=== PATIENT | female | born 1995 | race Hispanic/Latino ===

== ENCOUNTER 2024-02-05 07:03 | Day surgery (SDC) | payer MEDICAID ==
[2024-02-05] VITALS (12 sets, daily range): BP systolic 92–117; BP diastolic 53–77; PULSE 62–74; RESP 14–18; TEMP 97.3–98.1
[~2024-02-05] VITALS: Ht 152.4 cm; Wt 76.2 kg
[2024-02-05] MEDS ORDERED: CHOL500050 PO (07:58)
[2024-02-05] MEDS ORDERED: FERR-63 PO (07:58)
[2024-02-05] MEDS ORDERED: PANT20TA18 PO (07:58)
[2024-02-05] MEDS ORDERED: MESA1.2T PO (07:58)
[2024-02-05] MEDS: 0.9%NACL 1000ML 1,000 ML IV ONE (07:59)
[2024-02-05] MEDS ORDERED: proPOFol 10 MG/ML 20ML VIAL IV ONE ×2 (10:41)
== END 2024-02-05 12:20 | disposition home or self-care (01) ==
LOC: ENDO 07:03 → DAH 07:03 → ENDO 12:20
PROVIDERS: ATTEND Internal Medicine Gastroenterology
DX: D50.9 Iron deficiency anemia, unspecified (principal); K51.90 Ulcerative colitis, unspecified, without complications; K52.9 Noninfective gastroenteritis and colitis, unspecified; D12.8 Benign neoplasm of rectum; K29.50 Unspecified chronic gastritis without bleeding; Z88.1 Allergy status to other antibiotic agents; E55.9 Vitamin D deficiency, unspecified; E03.9 Hypothyroidism, unspecified; Z79.899 Other long term (current) drug therapy
CPT/HCPCS: 81025; 43239; 45380; 45385; J7030 ×2; J3490 ×2; A4615; A4215; A7002; J2704

== ENCOUNTER 2024-12-30 18:33 | Inpatient (IN) | payer MEDICAID ==
[~2024-12-30] VITALS: Ht 152.4 cm; Wt 28.3 kg
[~2024-12-30 18:33] MED LIST: CHOL500050 PO; FERR-63 PO; MESA1.2T PO; PANT20TA18 PO
--- NOTE | 2024-12-30 20:01 | ERN ---
General Chief Complaint: Fatigue Stated Complaint: FATIGUE Time Seen by MD: 19:00 Source: patient History of Present Illness Initial Comments Patient is a 29-year-old female coming in complaining of generalized body weakness. Patient was evaluated by PCP and sent in due to low hemoglobin. Patient states he has a history of ulcerative colitis and has been having these bouts of GI bleed in anemias for many years. Allergies: Coded Allergies: cefepime (Unverified Allergy, Intermediate, SWELLING, 02/11/24) HIVES, rash amoxicillin (Unverified Allergy, Unknown, RASH, ITCHING, 02/04/24) Home Meds Reported Medications Cholecalciferol (Vitamin D3) (Vitamin D3) 1,250 Mcg (08658 Unit) Capsule, 1 CAP PO QWEEK for 28 Days, #4 CAP 0 Refills 02/05/24 Pantoprazole Sodium (Pantoprazole Sodium) 20 Mg Tablet.dr, 1 TAB PO DAILY for 30 Days, #30 TAB 0 Refills 02/05/24 Mesalamine (Lialda) 1.2 Gram Tablet.dr, 1 TAB PO BID for 30 Days, #60 TAB 0 Refills 02/05/24 Ferrous Sulfate (Feosol) 325 Mg (65 Mg Iron) Tablet, 1 TAB PO TID for 30 Days, #30 TAB 0 Refills 02/05/24 Past Medical History Past Medical History: Anemia, Other Medical History Other: ulcerative colitis Past Surgical History: ROS Dictation CONSTITUTIONAL: No chills, no fever, weakness, no diaphoresis, malaise. HEAD/FACE: No signs of trauma. EENT: No eye pain, no blurred vision, no tearing, no double vision, no ear pain, no ear discharge, no nose pain, no nasal congestion, no throat pain, no throat swelling, no mouth pain. RESPIRATORY: No cough, no orthopnea, no SOB, no stridor, no wheezing. CARDIOVASCULAR: No chest pain, no edema, no palpitations, no syncope. GASTROINTESTINAL/ABDOMINAL: No abdominal pain, no constipation, no diarrhea, no nausea, no vomiting. GENITOURINARY: No abnormal discharge, no dysuria, no frequent urination, no hematuria. No complaints of pain in the genitals. MUSCULOSKELETAL: No back pain, no gout, no joint pain, no joint swelling, no muscle pain, no muscle stiffness, no neck pain. INTEGUMENTARY: No change in color, no change in hair/nails, no dryness, no l esion, no lumps, no rash. NEUROLOGICAL/PSYCH: No anxiety, not depressed, no emotional problem, no headache, no numbness, no pre-existing deficit, no history of seizures, no tremors, no weakness. HEMATOLOGIC/LYMPHATIC: Not anemic, no history of blood clots, no apparent bleeding, no bruising, glands not swollen. All Systems Negative, Except as Noted. Physical Exam Physical Exam Dictation VITAL SIGNS: Reviewed. GENERAL APPEARANCE: Alert, oriented x3, no acute distress, obese. HEAD AND FACE: Non-traumatic. EYES: PERRL, pink conjunctivas, eyelid no trauma, anterior chamber clear. EARS: Pinnas intact and no signs of trauma or erythema. Ear canals clear and no discharge. TMs no erythema. NOSE: No discharge, no bleeding. OROPHARYNX: Mouth normal, teeth no caries, tongue pink. Pharynx clear, no erythema. Tonsils no exudates, no abscesses noted. Mucous membrane moist. NECK: Supple, non-tender, no thyromegaly, no masses, no JVD, no bruits. BREAST: Deferred. CHEST: No tenderness, no crepitus, no paradoxical movement, no retractions. LUNGS: Clear, well-ventilated, symmetric, no rales, no wheezing, no rhonchi, no stridor, good breath sounds bilaterally. HEART: Regular rate, regular rhythm, no murmur, no gallops. VASCULAR: No peripheral edema. ABDOMEN: Soft, positive bowel sounds, nondistended, no guarding, nontender, no rebound, no masses no hepatomegaly, no splenomegaly, no Traore's sign, no hernias. RECTAL: Deferred. GENITAL: Deferred. NEUROLOGICAL: Normal speech, gross motor function intact, gross sensory function intact. MUSCULOSKELETAL: Neck nontender, full range of motion, back nontender, full range of motion. EXTREMITIES: Nontender, full range of motion. SKIN: Color pink, dry, no turgor, no rash, no lacerations, no abrasions, no contusions. LYMPHATICS: Deferred. Results Laboratory and Microbiology Lab and Micro Result Laboratory Tests Test 12/30/24 19:55 White Blood Count 9.7 K/uL (4.8-10.8) Red Blood Count 2.99 MIL/uL (4.00-5.50) L Hemoglobin 5.5 g/dL (12.0-16.0) *L Hematocrit 20.0 % (36-48) *L Mean Corpuscular Volume 66.9 fL (79-99) L Mean Corpuscular Hemoglobin 18.4 pg (27.0-33.0) L Mean Corpuscular Hemoglobin Concent 27.5 g/dL (32.0-36.0) L Red Cell Distribution Width 23.5 % (11.0-15.5) H Platelet Count 515 K/uL (130-400) H Mean Platelet Volume 9.6 fL (7.5-10.5) Immature Granulocyte % (Auto) 0.3 % (0-1) Neutrophils (%) (Auto) 67.1 % (40.0-77.0) Lymphocytes (%) (Auto) 16.0 % (21.0-51.0) L Monocytes (%) (Auto) 6.5 % (3.0-13.0) Eosinophils (%) (Auto) 9.7 % (0.0-8.0) H Basophils (%) (Auto) 0.4 % (0.0-5.0) Neutrophils # (Auto) 6.5 K/uL (1.8-7.7) Lymphocytes # (Auto) 1.6 K/uL (1.0-4.8) Monocytes # (Auto) 0.6 K/uL (0.1-1.0) Eosinophils # (Auto) 0.94 K/uL (0.00-0.70) H Basophils # (Auto) 0.04 K/uL (0.00-0.20) Absolute Immature Granulocyte (auto 0.03 K/uL (0-1) Nucleated Red Blood Cells 0.0 % (0.0-0.19) Sodium Level 138 mmol/L (136-145) Potassium Level 2.5 mmol/L (3.5-5.1) *L Chloride Level 101 mmol/L (101-111) Carbon Dioxide Level 28 mmol/L (21-32) Blood Urea Nitrogen 4 mg/dL (7-18) L Creatinine 0.5 mg/dL (0.5-1.0) Glomerular Filtration Rate Calc 131 mL/min (>90) Random Glucose 91 mg/dL (70-105) Total Calcium 8.0 mg/dL (8.5-10.1) L Labs Reviewed?: Yes MDM MDM: Differential diagnosis: ANEMIA, ULCERATIVE COLITIS, GI BLEED, HYPOKALEMIA, Rationale: Tests considered and ordered secondary to shared decision making include: Previous outside records reviewed: Old ER visits. Risk of complication and/or morbidity or mortality of patient management: None Medications-Per medication reconciliation Need for hospitalization: Patient does meet criteria for hospitalization. Need for emergency major/minor surgery: No There are no social concerns with this patient. Prescription drug management Prescriptions will include symptomatic care Patient's prior external medical records from other ER visits were reviewed by me as indicated. Prior testing and results from previous visits were reviewed. Prior tests were taken into account with medical decision making and resource utilization, independent historian/historians were used to obtain complete medical history. I independently interpreted the test that were performed, results were reviewed by me and considered findings on radiology if ordered. Medical management and examination interpretation discussions were had by me with other qualified healthcare professionals as indicated for the patient's care. PATIENT WILL BE ADMITTED UNDER THE CARE OF HOSPITALIST GROUP FOR ONGOING MANAGEMENT. ED Course Orders Procedure Category Date Status Time Cbc With Differential LAB 12/30/24 In Process 19:19 Prothrombin Time With LAB 12/30/24 In Process INR 19:19 Basic Metabolic Panel LAB 12/30/24 Complete 19:19 Type And Screen BBK 12/30/24 Complete 19:19 Occult Blood Stool LAB 12/30/24 Logged Single Only 19:19 Pantoprazole 40mg Inj PHA 12/30/24 Complete (Protonix 40mg Inj 19:30 Potassium Chloride PHA 12/30/24 In Process 10meq/100ml (Potassiu 21:00 Potassium Bicarb/Cit PHA 12/30/24 Logged Ac 25meq (K-Lyte Ta 21:00 Magnesium LAB 12/30/24 Logged 20:52 Current Medications Medications (Trade) Dose Ordered Sig/Donell Route PRN Reason Start Time Stop Time Status Last Admin Dose Admin Pantoprazole Sodium (PROTonix 40MG INJ) 40 mg ONCE ONCE IVP 12/30/24 19:30 12/30/24 19:31 DC 12/30/24 20:23 Potassium Bicarbonate (K-Lyte Tablet Eff 25 Meq Tablet.eff) 50 meq ONCE ONCE PO 12/30/24 21:00 12/30/24 21:01 UNV Potassium Chloride 100 ml @ 100 mls/hr ONCE ONCE IV 12/30/24 21:00 12/30/24 21:59 Vital Signs Date Time Temp Pulse Resp B/P (MAP) Pulse Ox O2 Delivery O2 Flow Rate FiO2 12/30/24 18:43 98.2 90 16 112/76 100 Room Air* 0 21 12/30/24 18:37 98.2 90 16 112/76 100 Room Air 0 Critical Care Note Comments CRITICAL CARE PROCEDURE NOTE AUTHORIZED AND PERFORMED BY: ME TOTAL CRITICAL CARE TIME: APPROXIMATELY 36 MINUTES DUE TO A HIGH PROBABILITY OF CLINICALLY SIGNIFICANT, LIFE THREATENING DETERIORATION, THE PATIENT REQUIRED MY HIGHEST LEVEL OF PREPAREDNESS TO INTERVENE EMERGENTLY AND I PERSONALLY SPENT THIS CRITICAL CARE TIME DIRECTLY AND PERSONALLY MANAGING THE PATIENT. THIS CRITICAL CARE TIME INCLUDED OBTAINING A HISTORY; EXAMINING THE PATIENT; PULSE OXIMETRY; ORDERING AND REVIEW OF STUDIES; ARRANGING URGENT TREATMENT WITH DEVELOPMENT OF A MANAGEMENT PLAN; EVALUATION OF PATIENT'S RESPONSE TO TREATMENT; FREQUENT REASSESSMENT; AND, DISCUSSIONS WITH OTHER PROVIDERS. THIS CRITICAL CARE TIME WAS PERFORMED TO ASSESS AND MANAGE THE HIGH PROBABILITY OF IMMINENT, LIFE-THREATENING DETERIORATION THAT COULD RESULT IN MULTI-ORGAN FAILURE. IT WAS EXCLUSIVE OF SEPARATELY BILLABLE PROCEDURES AND TREATING OTHER PATIENTS AND TEACHING TIME. PLEASE SEE MDM SECTION AND THE REST OF THE NOTE FOR FURTHER INFORMATION ON PATIENT ASSESSMENT AND TREATMENT. DX & DISP Disposition: Inpatient Decision to Admit Time: 21:01 Departure Impression: Primary Impression: History of ulcerative colitis Additional Impressions: Anemia, Hypokalemia Condition: Stable Referrals: TORIBIO YOUNG MD (PCP) MARNI WHEELER MD Dec 30, 2024 20:01
--- NOTE | 2024-12-30 20:02 | NUR ---
ASSUMED PT CARE
[2024-12-30 20:24] LABS: IMMATURE GRANULOCYTE ABSOLUTE 0.03 K/uL (0-1); NUCLEATED RED BLOOD CELLS 0.0 % (0.0-0.19); PLATELET COUNT (AUTO) 515 K/uL (130-400); RED BLOOD CELL COUNT(AUTO) 2.99 MIL/uL (4.00-5.50); RED CELL DISTRIBUTION WIDTH 23.5 % (11.0-15.5); WHITE BLOOD COUNT (AUTO) 9.7 K/uL (4.8-10.8)
[2024-12-30 20:35] LABS: CREATININE 0.5 mg/dL (0.5-1.0); GLOMERULAR FILTR. RATE CALC 131.0 mL/min (>90); GLUCOSE,RANDOM 91.0 mg/dL (70-105); SODIUM SERUM 138.0 mmol/L (136-145); UREA NITROGEN, BLOOD 4.0 mg/dL (7-18)
[2024-12-30 21:01] LABS: INR 1.08 (0.85-1.15)
--- NOTE | 2024-12-30 21:17 | HP ---
[facility] HISTORY AND PHYSICAL Date of Service: Dec 30, 2024 Time of Service: 21:17 Attending/supervising physicians: Dr. Michaud and Dr. Sheffield HISTORY OF PRESENT ILLNESS: Mr. Loving is a 29 year-old female with a history of ulcerative colitis, GI bleeding, and anemia for many years who [place] [facility] generalized body weakness onset a couple days. The patient was sent by PCP for evaluation and treatment of of low hemoglobin. The patient also complained of intermittent abdominal pain. Her GI physician: Dr. Philomena Tam. Chlorobutadiene Scrubber Operator: Dr. Hopkins. VS: HR 90 bpm, RR 16bpm, BP 112/76, 100% RA, 98.2 F. Labs: Chemistry: Potassium 2.5, BUN 4, Calcium 8.0, Hematology: RBC 2.99, Hgb 5.5, Hct 20.0, MCV 66.9, MCH 18.4, MCHC 27.5 RDW 23.5, PIt Count 515, Urine: UA: Negative Nitrate, negative Leukocyte est, UA: Occult Blood: +- (TRACE). No radiology results done in ED. ED administered potassium 50 mEq p.o., potassium 10 mEq IV., Protonix 40 mg IV. ED provider requested patient be admitted to the hospital with the diagnosis of ulcerative colitis, anemia, hypokalemia. I assessed the patient at bedside in ED 19. The patient's breathing was even, unlabored, appeared comfortable, in no distress. The patient was receiving PRBCs. I informed her of labs, diagnostics, and plan of care. She verbalized understanding and is in agreement with the plan. Plan and assessment are listed below. REVIEW OF SYSTEMS 12-point ROS reviewed with the patient. All pertinent positives mentioned above. Otherwise negative, noncontributory, non-pertinent. PAST MEDICAL HISTORY: As mentioned above PAST SURGICAL HISTORY: PAST SOCIAL HISTORY: Denied alcohol, tobacco, illicit drug use FAMILY HISTORY: Noncontributory Coded Allergies: cefepime (Unverified Allergy, Intermediate, SWELLING, 02/11/24) HIVES, rash amoxicillin (Unverified Allergy, Unknown, RASH, ITCHING, 02/04/24) PHYSICAL EXAM GENERAL APPEARANCE: The patient is awake, alert, and oriented, in no acute cardiopulmonary distress. NEUROLOGICAL: Cranial nerves II-XII grossly intact. Motor is 5/5 in bilateral upper and lower extremities proximal to distal. No sensory deficits. HEENT: Face is symmetric. Pupils are equal and reactive. Extraocular movements are intact. NECK: Supple. No JVD. No thyromegaly. No submental, submandibular, pre-/po stauricular, occipital or supraclavicular lymphadenopathy. CHEST: Normal chest expansion. No Telemetry. LUNGS: Absence of any rales, rhonchi or any wheezing. CARDIOVASCULAR: Regular. S1 and S2 normal. No appreciable rubs, murmurs or gallops. ABDOMEN: Soft, nontender, and nondistended. There is no rebound, voluntary guarding, or rigidity. : Deferred. No Nicole. EXTREMITIES: Non-edematous and not cyanotic. No clubbing. Good capillary refill. SKIN: No skin breakdown. Vital Sign (Last 24 Hours) 12/30/24 18:43 Temp 98.2 Pulse 90 Resp 16 B/P (MAP) 112/76 Pulse Ox 100 O2 Delivery Room Air* O2 Flow Rate 0 FiO2 21 LABS: Laboratory: Test 12/30/24 19:55 Range/Units White Blood Count 9.7 4.8-10.8 K/uL Red Blood Count 2.99 L 4.00-5.50 MIL/uL Hemoglobin 5.5 *L 12.0-16.0 g/dL Hematocrit 20.0 *L 36-48 % Mean Corpuscular Volume 66.9 L 79-99 fL Mean Corpuscular Hemoglobin 18.4 L 27.0-33.0 pg Mean Corpuscular Hemoglobin Concent 27.5 L 32.0-36.0 g/dL Red Cell Distribution Width 23.5 H 11.0-15.5 % Platelet Count 515 H 130-400 K/uL Mean Platelet Volume 9.6 7.5-10.5 fL Immature Granulocyte % (Auto) 0.3 0-1 % Neutrophils (%) (Auto) 67.1 40.0-77.0 % Lymphocytes (%) (Auto) 16.0 L 21.0-51.0 % Monocytes (%) (Auto) 6.5 3.0-13.0 % Eosinophils (%) (Auto) 9.7 H 0.0-8.0 % Basophils (%) (Auto) 0.4 0.0-5.0 % Neutrophils # (Auto) 6.5 1.8-7.7 K/uL Lymphocytes # (Auto) 1.6 1.0-4.8 K/uL Monocytes # (Auto) 0.6 0.1-1.0 K/uL Eosinophils # (Auto) 0.94 H 0.00-0.70 K/uL Basophils # (Auto) 0.04 0.00-0.20 K/uL Absolute Immature Granulocyte (auto 0.03 0-1 K/uL Nucleated Red Blood Cells 0.0 0.0-0.19 % Red Blood Cell Morphology See comments Prothrombin Time 11.4 9.6-11.6 SEC Prothromb Time International Ratio 1.08 0.85-1.15 Sodium Level 138 136-145 mmol/L Potassium Level 2.5 *L 3.5-5.1 mmol/L Chloride Level 101 101-111 mmol/L Carbon Dioxide Level 28 21-32 mmol/L Blood Urea Nitrogen 4 L 7-18 mg/dL Creatinine 0.5 0.5-1.0 mg/dL Glomerular Filtration Rate Calc 131 >90 mL/min Random Glucose 91 70-105 mg/dL Total Calcium 8.0 L 8.5-10.1 mg/dL Magnesium Level 2.00 1.80-2.40 mg/dL DIAGNOSTICS / RADIOLOGY: [ ] ASSESSMENT: Severe anemia requiring blood transfusion, POA Anorexia 2/2 acute abdominal pain, POA Severe hypokalemia, POA Thrombocytosis, POA Acute dehydration/ketonuria, POA Malnutrition/Hypoalbuminemia, POA History of ulcerative colitis History of GI bleed History of a recurrent anemia requiring blood transfusion, follows with Dr. Hopkins PLAN: Admit patient to medical floor with telemetry monitoring. Obtain CT abdomen and pelvis with contrast. Consult GI for severe anemia, rule out GI bleed, abdominal pain, history of ulcerative colitis Consult spark plug assembler for recurrent severe anemia NPO for now. Protonix 40 mg IV b.i.d.. Monitor for bleed, H&H and electrolytes q.6 hours. Transfuse1 unit of PRBCs p.r.n. hemoglobin less than seven. NS with 20 mEq KCL at 100 mL an hour. P.r.n. medications for: Pain management, fever, hypertension, nausea, vomiting, constipation Glucose checks a.c. and HS with insulin regular sliding scale coverage as needed. Monitor respirations status. Oxygen as needed to keep SpO2 equal to greater than 92. Blood pressure checks every4 hours and as needed. Reconcile home medications once available. Monitor renal and liver function. Monitor electrolytes and treat accordingly. A.m. labs. GI and DVT prophylaxis. Further plan/orders per hospitalization course. ADVANCED CARE PLANNING 1. Which of the following were discussed? Hospice Care - No Therapeutic options - Yes Advance Directives - Yes Other discussions - 2. Discussed with who? The patient 3. Voluntary nature of this service was explained to the patient? Yes 4. Amount of time spent - __ over 35 minutes 5. Reviewed by Physician? (if this service was performed by AUGUST) Yes ATTESTATION BY PHYSICIAN I have seen and examined the patient. I reviewed the documentation, medical decision making, and treatment plan as noted by the AUGUST above. I agree with the findings and plan of care. MARIE HERNANDEZ PHOTOGRAPHER MODEL Dec 30, 2024 21:17
[2024-12-30 22:25] LABS: APPEARANCE,URINE CLEAR (CLEAR); GLUCOSE, URINE (UA) NEGATIVE (NEGATIVE); LEUKOCYTE ESTERASE ,URINE NEGATIVE Leu/uL (NEGATIVE); NITRATE,URINE NEGATIVE (NEGATIVE); OCCULT BLOOD,URINE +- (TRACE) (NEGATIVE)
[2024-12-30 22:26] LABS: ADD UA MICROSCOPIC YES
[2024-12-30 22:27] LABS: SQUAMOUS EPITHELIAL CELL,UR RARE /HPF (0-2)
[2024-12-30] MEDS ORDERED: GLUCAGON 1MG KIT 1 MG ML IM PRN (23:00)
[2024-12-30] MEDS ORDERED: DEXTROSE 50%-WATER 50 ML DISP.SYRIN IV PRN (23:00)
[2024-12-30] MEDS: 0.9%NACL 1000ML 1,000 ML IV SCH (23:08)
[2024-12-30 23:37] LABS: ASPARTATE AMINOTRANSFERASE 12.0 U/L (10-37); CREATININE 0.4 mg/dL (0.5-1.0); GLOMERULAR FILTR. RATE CALC 138.0 mL/min (>90); GLUCOSE,RANDOM 101.0 mg/dL (70-105); SODIUM SERUM 137.0 mmol/L (136-145); TOTAL PROTEIN, SERUM 6.8 g/dL (6.0-8.3); UREA NITROGEN, BLOOD 3.0 mg/dL (7-18)
[2024-12-31] VITALS (10 sets, daily range): BP systolic 99–123; BP diastolic 57–78; PULSE 63–90; RESP 16–20; TEMP 98–98.3; O2SAT 97–100
--- NOTE | 2024-12-31 00:28 | NUR ---
PT MOVED TO ROOM 19. HANDED OVER TO TARAH GARCÍA
[2024-12-31] MEDS: PoTASSium chloRIDE 20MEQ ER 20 MEQ ERTAB PO ONE (01:41)
--- NOTE | 2024-12-31 02:24 | NUR ---
FIRST BAG OF BLOOD TRANSFUSIONED, PT VITALS WITHIN NORMAL LIMITS, PT TOLERATED TREATMENT WELL
[2024-12-31 05:01] LABS: NUCLEATED RED BLOOD CELLS 0.0 % (0.0-0.19)
[2024-12-31 05:20] LABS: SARS-CoV-2, RNA, NAAT NEGATIVE SARS CoV-2 (NEGATIVE)
[2024-12-31 05:22] LABS: INFLUENZA TYPE A Negative For Type A (NEGATIVE); INFLUENZA TYPE B Negative For Type B (NEGATIVE)
[2024-12-31 05:23] LABS: CREATININE 0.4 mg/dL (0.5-1.0); GLOMERULAR FILTR. RATE CALC 138.0 mL/min (>90); GLUCOSE,RANDOM 94.0 mg/dL (70-105); PHOSPHORUS 3.5 mg/dL (2.5-4.9); SODIUM SERUM 137.0 mmol/L (136-145); UREA NITROGEN, BLOOD 5.0 mg/dL (7-18)
[2024-12-31] MEDS ORDERED: IOHEXOL 350 MG/ML 100ML INFUS..BTL IV ONE (05:37)
[2024-12-31] MEDS ORDERED: DICY20TA3 PO (06:01)
[2024-12-31] MEDS ORDERED: ADAL40PE5 SQ (06:01)
[2024-12-31] MEDS: NS-20 MEQ KCL 1000ML 1,000 ML IV SCH (06:18)
--- NOTE | 2024-12-31 06:45 | HMCIMG ---
EXAM: CT Abdomen and Pelvis with IV contrast CLINICAL HISTORY: Abdominal pain. Severe anemia. History of ulcerative colitis. TECHNIQUE: Thin collimated axial CT images of the abdomen and pelvis were obtained, with sagittal and coronal reformatted images also submitted. A CT scan is done according to ALARA (As Low As Reasonably Achievable). CONTRAST: Contrast information is not available. COMPARISON: Prior CT abdomen dated 11 February 2024 FINDINGS: Unremarkable visualized lung parenchyma. No focal abnormality within the liver, gallbladder, pancreas, spleen, adrenals, or kidneys. Subtle inflammatory wall thickening in the distal transverse, descending colon, and diffuse inflammatory wall thickening in the region of the sigmoid colon and in the rectum with submucosal edema and adjacent fat stranding. No evidence of diverticulosis or diverticulitis. No features of bowel obstruction or ileus. The appendix is normal. There is no abnormality within the urinary bladder. A fat attenuation 2.4 x 2.4 cm lesion in the left ovary, probably a left ovarian dermoid, and another 3.1 x 2.8 cm cyst follicular cyst, in the left ovary. The uterus and right ovary appear unremarkable. Abdominal and pelvic vessels are patent. No lymphadenopathy. No free fluid. There is no acute osseous abnormality. IMPRESSIONS: Subtle inflammatory wall thickening in the distal transverse, descending colon, and diffuse inflammatory wall thickening in the region of the sigmoid colon and in the rectum with submucosal edema and adjacent fat stranding. Consistent with the history of ulcerative colitis. No evidence of diverticulosis or diverticulitis. Normal contrast opacification of the abdominal aorta and visceral arteries. No significant narrowing or occlusion. A fat attenuation 2.4 x 2.4 cm lesion in the left ovary, probably a left ovarian dermoid, and another 3.1 x 2.8 cm cyst follicular cyst, in the left ovary. Compared to the prior study, redemonstrated inflammatory wall thickening in the descending, sigmoid colon, and rectum, more pronounced in the current scan. Stable left ovarian dermoid, interval development of 2.8 x 3.1 cm follicular cyst in the left ovary. /[place]
--- NOTE | 2024-12-31 08:02 | CONS ---
LOCATION: 411. REFERRING PHYSICIAN: Brooklynn Ortiz. REASON FOR CONSULTATION: Iron deficiency anemia and GI bleeding. HISTORY OF PRESENT ILLNESS: This is a 29-year-old woman, well known to me with ulcerative colitis and iron deficiency anemia, I see in conjunction with Dr. Philomena Kang. She called my office late yesterday with hemoglobin of 5. We talked it over and decided it would be better if she come to the hospital for a possible transfusion. She is admitted by the hospitalist who gave her a unit of blood overnight. She looks fine this morning. She has had some bleeding, but just took her Enbrel shot yesterday, which is treatment of her ulcerative colitis. PAST MEDICAL HISTORY: Ulcerative colitis as noted above, iron deficiency anemia. PAST SURGICAL HISTORY: Multiple endoscopies, , previous transfusions. MEDICATIONS: See intake sheet. ALLERGIES: CEFEPIME AND AMOXICILLIN CAUSED REACTIONS. FAMILY HISTORY: Negative for inflammatory bowel disease. SOCIAL HISTORY: She lives with her family. Does not smoke or drink. She is actually very active. REVIEW OF SYSTEMS: HEENT: Negative. CARDIOVASCULAR: Negative for chest pain, palpitations, PND. PULMONARY: Negative for cough. GASTROINTESTINAL: As above, intermittent bleeding. GENITOURINARY: Negative for hematuria or dysuria. PHYSICAL EXAMINATION: VITAL SIGNS: Blood pressure 99/57, pulse 68, respirations 20. HEENT: Benign. CHEST: Clear. ABDOMEN: Soft. EXTREMITIES: Show no edema. NEUROLOGICAL: Alert and oriented. IMPRESSION: GI bleeding from ulcerative colitis, ulcerative colitis, iron deficiency anemia, other problems as listed. PLAN: Repeat her CBC. If she is going to stay another day, I would give her a shot of Venofer or equivalent, whatever the hospital has in terms of iron replacement. Protonix IV prophylactically. I suspect she does not really need to be rescoped since we already know her diagnosis, but certainly, I would consult GI, Dr. Kang. If the bleeding subsides, I think she can go home and follow up in the clinic tomorrow. She looks perfectly stable. Thank you for the consult. TID: [id number] RECEIPT: [id number]
[2024-12-31] MEDS ORDERED: DICYCLOMINE HCL 20 MG TAB PO PRN (09:00)
--- NOTE | 2024-12-31 09:36 | CONS ---
GASTROENTEROLOGY CONSULTATION NOTE Date of Consultation: Dec 31, 2024 Time of Consultation: 09:25 History of Present Illness: [This is a 29-year-old female patient known to our service with past medical history for ulcerative colitis, iron-deficiency anemia, gastritis, hypothyroidism, vitamin-D deficiency, who presented to the emergency room with complaints of generalized body weakness. Patient had been evaluated by her PCP and was told she had low hemoglobin. Patient was last seen at our clinic on 10/28/2024 where she had been prescribed azathioprine tablets, Humira pen kit 40mg/0.4mL to be given SQ every other week, and dicyclomine 20 mg for abdominal pain. Patient has been lost to follow up. Initial WBC of 9.7, hemoglobin 5.5, MCV 66.9, platelets 515. Chemistries significant for potassium of 3.4, BUN five, creatinine 0.4, calcium 8.2. LFTs are normal. Albumin 3.0. TSH 0.89. UA positive for blood 20 of ketones. Patient has received 1 unit of leukocytes RBCs. Repeat CBC pending. CT of abdomen w/contrast findings: Subtle inflammatory wall thickening in the distal transverse, descending colon, and diffuse inflammatory wall thickening in the region of the sigmoid colon and in the rectum with submucosal edema and adjacent fat stranding. Consistent with the history of ulcerative colitis. No evidence of diverticulosis or diverticulitis. Normal contrast opacification of the abdominal aorta and visceral arteries. No significant narrowing or occlusion. A fat attenuation 2.4 x 2.4 cm lesion in the left ovary, probably a left ovarian dermoid, and another 3.1 x 2.8 cm cyst follicular cyst, in the left ovary. On exam, patient is sitting in bed a,a,&o x3 in no acute distress. Her respirations are even and unlabored with bbs clear. Abdomen is soft, nondistended and nontender. Active BS present. She reports she had Humira injection on 12/24/24. Oriented to poc and recommendations for colonoscopy tomorrow followed by Iv methylprednisone infusion x 3 days then po. Patient verbalized understanding and agreement. ] Review of Systems: CONSTITUTIONAL: No malaise or change in sensation of wellbeing. ENMT: No rhinorrhea, otorrhea, sinus pain, ear ache. CARDIOVASCULAR: No angina, palpitations, orthopnea or paroxysmal dyspnea. RESPIRATORY: No SOB. GASTROINTESTINAL: No abdominal pain, nausea, vomiting, diarrhea, hematemesis, melena or change in the patient's habitual bowel movements consistency/number. GENITOURINARY: No dysuria, hematuria or change in bladder continence. MUSCULOSKELETAL: No new muscle pain or decrease in muscular strength. No new joint swelling, redness or tenderness. SKIN: No new rash. Past Medical History: Past Medical History: Ulcerative Colitis, Iron deficiency anemia, Vitamin D deficiency, Hypothyroidism, Gastritis, Past Surgical History: 02/03/23, Tonsillectomy, Adenoidectomy Coded Allergies: cefepime (Unverified Allergy, Intermediate, SWELLING, 02/11/24) HIVES, rash amoxicillin (Unverified Allergy, Unknown, RASH, ITCHING, 02/04/24) Physical Exam GEN: Awake, alert, oriented in person, time and place, and in no acute distress. HEENT: No rhinorrhea. Oral pharyngeal mucosa is pink, moist and within normal limits. CHEST: Inspection, and palpation of the chest were unremarkable. Lung auscultation revealed normal breath sounds bilaterally. CARDIAC: PMI is within normal limits. Heart sounds are regular. ABD: Soft, non-tender and not distended. No peritoneal signs on palpation. No organomegaly. Normal bowel sounds. Last bm 12/31/24. EXT: No cyanosis or clubbing. No edema. SKIN: Intact. No rashes. JOINTS: No evidence of synovitis or acute arthritis. NEURO: Alert and oriented to name, place and person. Cranial nerve examination is unremarkable. No focal motor deficits. Normal speech. Steady gait noted. Strength is normal. Vital Sign (Last 24 Hours) 12/31/24 12/31/24 05:50 08:00 Temp 98.1 Pulse 63 Resp 18 B/P (MAP) 101/59 Pulse Ox 100 O2 Delivery Room Air O2 Flow Rate 0 FiO2 21 Laboratory: [ ] Laboratory: Test 12/31/24 06:11 12/31/24 05:00 12/31/24 04:55 12/31/24 04:45 Range/Units Whole Blood Glucose 92 70-110 MG/DL Influenza Type A Antigen Negative For Type A NEGATIVE Influenza Type B Antigen Negative For Type B NEGATIVE SARS-CoV-2, RNA, NAAT NEGATIVE SARS CoV-2 NEGATIVE White Blood Count 4.8-10.8 K/uL Red Blood Count 4.00-5.50 MIL/uL Hemoglobin 12.0-16.0 g/dL Hematocrit 36-48 % Mean Corpuscular Volume 79-99 fL Mean Corpuscular Hemoglobin 27.0-33.0 pg Mean Corpuscular Hemoglobin Concent 32.0-36.0 g/dL Red Cell Distribution Width 11.0-15.5 % Platelet Count 130-400 K/uL Mean Platelet Volume 7.5-10.5 fL Nucleated Red Blood Cells 0.0 0.0-0.19 % Sodium Level 137 136-145 mmol/L Potassium Level 3.4 L 3.5-5.1 mmol/L Chloride Level 101 101-111 mmol/L Carbon Dioxide Level 28 21-32 mmol/L Blood Urea Nitrogen 5 L 7-18 mg/dL Creatinine 0.4 L 0.5-1.0 mg/dL Glomerular Filtration Rate Calc 138 >90 mL/min Random Glucose 94 70-105 mg/dL Hemoglobin A1c 4.6 4.0-6.0 % Estimated Average Glucose (eAG) 85 70-126 mg/dL Total Calcium 8.2 L 8.5-10.1 mg/dL Phosphorus Level 3.5 2.5-4.9 mg/dL Magnesium Level 2.10 1.80-2.40 mg/dL Thyroid Stimulating Hormone (TSH) 0.89 0.36-3.74 uIU/mL Urine HCG, Qualitative NEGATIVE NEGATIVE Test 12/30/24 23:10 12/30/24 20:55 12/30/24 19:55 Range/Units Total Bilirubin 0.3 0.2-1.0 mg/dL Aspartate Amino Transf (AST/SGOT) 12 10-37 U/L Alanine Aminotransferase (ALT/SGPT) 15 12-78 U/L Alkaline Phosphatase 66 50-136 U/L Total Protein 6.8 6.0-8.3 g/dL Albumin 3.0 L 3.5-5.0 g/dL Urine Color COLORLESS YELLOW Urine Appearance CLEAR CLEAR Urine pH 7.0 5.0-8.0 Urine Specific [place] 1.005 1.001-1.031 Urine Protein NEGATIVE NEGATIVE mg/dL Urine Glucose (UA) NEGATIVE NEGATIVE mg/dL Urine Ketones 20 H NEGATIVE mg/dL Urine Occult Blood +- (TRACE) H NEGATIVE Urine Nitrate NEGATIVE NEGATIVE Urine Bilirubin NEGATIVE NEGATIVE mg/dL Urine Urobilinogen 0.2 0.2-1.0 mg/dL Urine Leukocyte Esterase NEGATIVE NEGATIVE [place]/uL Urine RBC 0-1 0-1 /HPF Urine WBC 2-5 H 0-1 /HPF Urine Squamous Epithelial Cells RARE 0-2 /HPF Urine Bacteria RARE None Seen /HPF Immature Granulocyte % (Auto) 0.3 0-1 % Neutrophils (%) (Auto) 67.1 40.0-77.0 % Lymphocytes (%) (Auto) 16.0 L 21.0-51.0 % Monocytes (%) (Auto) 6.5 3.0-13.0 % Eosinophils (%) (Auto) 9.7 H 0.0-8.0 % Basophils (%) (Auto) 0.4 0.0-5.0 % Neutrophils # (Auto) 6.5 1.8-7.7 K/uL Lymphocytes # (Auto) 1.6 1.0-4.8 K/uL Monocytes # (Auto) 0.6 0.1-1.0 K/uL Eosinophils # (Auto) 0.94 H 0.00-0.70 K/uL Basophils # (Auto) 0.04 0.00-0.20 K/uL Absolute Immature Granulocyte (auto 0.03 0-1 K/uL Red Blood Cell Morphology See comments Prothrombin Time 11.4 9.6-11.6 SEC Prothromb Time International Ratio 1.08 0.85-1.15 Current Medications Medications (Trade) Dose Ordered Sig/Donell Route PRN Reason Start Time Stop Time Status Last Admin Dose Admin Acetaminophen (TYLenol 325MG TAB) 650 mg Q6H PRN PO FEVER/MILD PAIN LEVEL 1-3 12/30/24 23:00 01/29/25 22:59 Acetaminophen (TYLenol 650MG SUPPOSITORY) 650 mg Q6H PRN RC FEVER / MILD PAIN 1-3 IF NPO 12/30/24 23:00 01/29/25 22:59 Dextrose (D50w) 50 ml AD PRN IV HYPOGLYCEMIA PROTOCOL 12/30/24 23:00 01/29/25 22:59 Dicyclomine HCl (Bentyl 20mg Tab) 20 mg BID PRN PO GI UPSET/UPSET STOMACH 12/31/24 09:00 01/30/25 08:59 Glucagon (Glucagon 1mg Kit) 1 mg AD PRN IM HYPOGLYCEMIA PROTOCOL 12/30/24 23:00 01/29/25 22:59 Insulin Human Regular (humuLIN R 100 UNIT/ML 3ML) INSULIN SLIDING SCAL... ACHS SQ 12/31/24 07:30 01/30/25 07:29 Labetalol HCl (TRANdate 20MG SYG) 10 mg Q2H PRN IV SBP GREATER THAN 160 12/30/24 23:00 01/29/25 22:59 Magnesium Sulfate 50 ml @ 0 mls/hr PROTOCOL PRN IV MAGNESIUM PROTOCOL 12/30/24 23:00 01/29/25 22:59 Ondansetron HCl (zoFRAN 4MG INJ) 4 mg Q6H PRN IVP NAUSEA/VOMITING 12/30/24 23:00 01/29/25 22:59 Pantoprazole Sodium (PROTonix 40MG INJ) 40 mg BID IVP 12/31/24 09:00 01/30/25 08:59 Potassium Chloride/Sodium Chloride 1,000 ml @ 100 mls/hr Q10H IV 12/31/24 05:00 01/30/25 04:59 12/31/24 06:18 100 MLS/HR Potassium Chloride 100 ml @ 100 mls/hr AD PRN IV POTASSIUM PROTOCOL 12/30/24 23:00 01/29/25 22:59 Potassium Chloride (K-Dur/Klor-Con 20meq) 20 meq AD PRN PO POTASSIUM PROTOCOL 12/30/24 23:00 01/29/25 22:59 Potassium Chloride (KCl 10% Elixir 20meq/15ml) 20 meq AD PRN PO POTASSIUM PROTOCOL 12/30/24 23:00 01/29/25 22:59 Sodium Chloride 1,000 ml @ 100 mls/hr Q10H IV 12/30/24 23:00 01/29/25 22:59 12/30/24 23:08 100 MLS/HR Temazepam (restORIL 15 MG CAP) 15 mg HS PRN PO INSOMNIA/SLEEP 12/30/24 23:00 01/29/25 22:59 Diagnostics / Radiology: [COPY/PASTE HERE IF NO REPORTS PLEASE DELETE SECTION] Assessment: [Concern for GI bleed Anemia Ulcerative Colitis Hypothyroidism ] Plan: Case discussed with Dr. Naidu [Clear fluids today NPO after midnight Recommend trending HGB every 6 hours and transfuse as needed to goal HGB > 7. Plan for Colonoscopy in am--All information given to patient. Her questions were answered and she agreed to proceed with exam. Stool studies ordered Mesalamine 1600mg po tid Please call with questions, concerns, and change in clinical status. Thank you for allowing us to be part of this patient's care ] ERIS MARTIN NP Dec 31, 2024 09:36
[2024-12-31 09:40] LABS: CREATININE 0.5 mg/dL (0.5-1.0); GLOMERULAR FILTR. RATE CALC 131.0 mL/min (>90); GLUCOSE,RANDOM 86.0 mg/dL (70-105); SODIUM SERUM 138.0 mmol/L (136-145); UREA NITROGEN, BLOOD 3.0 mg/dL (7-18)
[2024-12-31 09:50] LABS: NUCLEATED RED BLOOD CELLS 0.0 % (0.0-0.19); PLATELET COUNT (AUTO) 469.0 K/uL (130-400); RED BLOOD CELL COUNT(AUTO) 3.55 MIL/uL (4.00-5.50); RED CELL DISTRIBUTION WIDTH 23.8 % (11.0-15.5); WHITE BLOOD COUNT (AUTO) 11.4 K/uL (4.8-10.8)
[2024-12-31 10:12] LABS: % IRON SATURATION 4.2 % (22-44); IRON, SERUM 11.0 mcg/dL (50-170)
--- NOTE | 2024-12-31 10:15 | NUR ---
Report received from Charge NursePritesh. Assumed care of patient.
--- NOTE | 2024-12-31 11:13 | NUR ---
DCP:HOME Pt currently lives at home with her common law and 2 kids. Pt receives $534 in SNAP benefits and states that she receives housing assistance to pay for her apartment but was unaware of the amount of the assistance. Pt does not have home health or provider services. Pt is able to complete ADLs independently. PCP is Philomena Orta and uses [facility] for any RX needs. At DC pt will want to go home and family can assist with transportation. Addendum: 12/31/24 at 1115 by PINA ARROYO SS Amended: Links added.
--- NOTE | 2024-12-31 13:59 | PN ---
[facility] PROGRESS NOTE Date of Service: Dec 31, 2024 Time of Service: 13:58 SUBJECTIVE: Mr. Loving is a 29 year-old female with a history of ulcerative colitis, GI bleeding, and anemia for many years who presented with [facility] for evaluation of generalized body weakness onset a couple days. The patient was sent by PCP for evaluation and treatment of of low hemoglobin. The patient also complained of intermittent abdominal pain. Her GI physician: Dr. Philomena Tam. Director Construction Services: Dr. Hopkins. VS: HR 90 bpm, RR 16bpm, BP 112/76, 100% RA, 98.2 F. Labs: Chemistry: Potassium 2.5, BUN 4, Calcium 8.0, Hematology: RBC 2.99, Hgb 5.5, Hct 20.0, MCV 66.9, MCH 18.4, MCHC 27.5 RDW 23.5, PIt Count 515, Urine: UA: Negative Nitrate, negative Leukocyte est, UA: Occult Blood: +- (TRACE). No radiology results done in ED. ED administered potassium 50 mEq p.o., potassium 10 mEq IV., Protonix 40 mg IV. ED provider requested patient be admitted to the hospital with the diagnosis of ulcerative colitis, anemia, hypokalemia. I assessed the patient at bedside in ED 19. The patient's breathing was even, unlabored, appeared comfortable, in no distress. The patient was receiving PRBCs. I informed her of labs, diagnostics, and plan of care. She verbalized understanding and is in agreement with the plan. Plan and assessment are listed below. 12/31/24: Patient seen at bedside in room 411. Case discussed with RN, no overnight events. She received one PRBCs transfusion yesterday night, patient says she is feeling better now. Her hemoglobin increased from 5.5t o 7.5, RBC from 2.99 to 3.55, her potassium has improved from 2.5 to 3.[address] abdomen/pelvis shows subtle inflammatory wall thickening in distal transverse, descending colon and diffuse inflammatory wall thickening in the region of the sigmoid colon and in the rectum with submucosal edema and adjacent fat stranding consistent with ulcerative colitis. No evidence of diverticulosis or diverticulitis. Left ovary shows dermoid, follicular cyst on CT. She is on clear diet now, NPO from midnight for colonoscopy in a.m. tomorrow as per GI recommendations. Methylprednisolone 60 mg IV, Mesalamine 1600 mg p.o. t.i.d. for ulcerative colitis. Trend hemoglobin every 6 hours and transfuse as needed to goal hemoglobin >7. REVIEW OF SYSTEMS 12-point ROS reviewed with the patient. All pertinent positives mentioned above. Otherwise negative, noncontributory, non-pertinent. PHYSICAL EXAM GENERAL APPEARANCE: The patient is awake, alert, and oriented, in no acute cardiopulmonary distress. HEENT: Face is symmetric. Pupils are equal and reactive. Extraocular movements are intact. NECK: Supple. No JVD. No thyromegaly. No submental, submandibular, pre-/postauricular, occipital or supraclavicular lymphadenopathy. CHEST: Normal chest expansion. No Telemetry. LUNGS: Absence of any rales, rhonchi or any wheezing. CARDIOVASCULAR: Regular. S1 and S2 normal. No appreciable rubs, murmurs or gallops. ABDOMEN: Soft, nontender, and nondistended. There is no rebound, voluntary guarding, or rigidity. : Deferred. No Nicole. EXTREMITIES: Non-edematous and not cyanotic. No clubbing. Good capillary refill. SKIN: No skin breakdown. Vital Signs (last 8hr) Date Time Temp Pulse Resp B/P (MAP) Pulse Ox O2 Delivery O2 Flow Rate FiO2 12/31/24 12:00 98.2 75 16 100/59 99 Room Air 21 12/31/24 08:00 98.1 63 18 101/59 100 Room Air LABS: Laboratory: Test 12/31/24 11:02 12/31/24 09:13 12/31/24 05:00 12/31/24 04:55 Range/Units Whole Blood Glucose 81 70-110 MG/DL White Blood Count 11.4 H 4.8-10.8 K/uL Red Blood Count 3.55 L 4.00-5.50 MIL/uL Hemoglobin 7.5 #L 12.0-16.0 g/dL Hematocrit 25.1 #L 36-48 % Mean Corpuscular Volume 70.7 L 79-99 fL Mean Corpuscular Hemoglobin 21.1 L 27.0-33.0 pg Mean Corpuscular Hemoglobin Concent 29.9 L 32.0-36.0 g/dL Red Cell Distribution Width 23.8 H 11.0-15.5 % Platelet Count 469 H 130-400 K/uL Mean Platelet Volume 9.6 7.5-10.5 fL Nucleated Red Blood Cells 0.0 0.0-0.19 % Reticulocyte Count (auto) 1.37064 0.42-2.23 % Immature Reticulocyte Fraction 5.70 H 0.18-0.48 % Sodium Level 138 136-145 mmol/L Potassium Level 3.3 L 3.5-5.1 mmol/L Chloride Level 104 101-111 mmol/L Carbon Dioxide Level 28 21-32 mmol/L Blood Urea Nitrogen 3 L 7-18 mg/dL Creatinine 0.5 0.5-1.0 mg/dL Glomerular Filtration Rate Calc 131 >90 mL/min Random Glucose 86 70-105 mg/dL Whole Blood Ketones Quantitative 0.4 0.0-0.6 mmol/L Total Calcium 7.7 L 8.5-10.1 mg/dL Iron Level 11 L 50-170 mcg/dL Total Iron Binding Capacity 258 250-450 mcg/dL Percent Iron Saturation 4.2 L 22-44 % Ferritin 21 15-150 ng/mL C-Reactive Protein, Quantitative 1.50 0.5-3.0 mg/L Vitamin B12 Level 1562 H 193-986 pg/mL Folic Acid (LAB) 17.10 2-20 ng/mL Influenza Type A Antigen Negative For Type A NEGATIVE Influenza Type B Antigen Negative For Type B NEGATIVE SARS-CoV-2, RNA, NAAT NEGATIVE SARS CoV-2 NEGATIVE Hemoglobin A1c 4.6 4.0-6.0 % Estimated Average Glucose (eAG) 85 70-126 mg/dL Phosphorus Level 3.5 2.5-4.9 mg/dL Magnesium Level 2.10 1.80-2.40 mg/dL Thyroid Stimulating Hormone (TSH) 0.89 0.36-3.74 uIU/mL Test 12/31/24 04:45 12/30/24 23:10 12/30/24 20:55 12/30/24 19:55 Range/Units Urine HCG, Qualitative NEGATIVE NEGATIVE Total Bilirubin 0.3 0.2-1.0 mg/dL Aspartate Amino Transf (AST/SGOT) 12 10-37 U/L Alanine Aminotransferase (ALT/SGPT) 15 12-78 U/L Alkaline Phosphatase 66 50-136 U/L Total Protein 6.8 6.0-8.3 g/dL Albumin 3.0 L 3.5-5.0 g/dL Urine Color COLORLESS YELLOW Urine Appearance CLEAR CLEAR Urine pH 7.0 5.0-8.0 Urine Specific [place] 1.005 1.001-1.031 Urine Protein NEGATIVE NEGATIVE mg/dL Urine Glucose (UA) NEGATIVE NEGATIVE mg/dL Urine Ketones 20 H NEGATIVE mg/dL Urine Occult Blood +- (TRACE) H NEGATIVE Urine Nitrate NEGATIVE NEGATIVE Urine Bilirubin NEGATIVE NEGATIVE mg/dL Urine Urobilinogen 0.2 0.2-1.0 mg/dL Urine Leukocyte Esterase NEGATIVE NEGATIVE [place]/uL Urine RBC 0-1 0-1 /HPF Urine WBC 2-5 H 0-1 /HPF Urine Squamous Epithelial Cells RARE 0-2 /HPF Urine Bacteria RARE None Seen /HPF Immature Granulocyte % (Auto) 0.3 0-1 % Neutrophils (%) (Auto) 67.1 40.0-77.0 % Lymphocytes (%) (Auto) 16.0 L 21.0-51.0 % Monocytes (%) (Auto) 6.5 3.0-13.0 % Eosinophils (%) (Auto) 9.7 H 0.0-8.0 % Basophils (%) (Auto) 0.4 0.0-5.0 % Neutrophils # (Auto) 6.5 1.8-7.7 K/uL Lymphocytes # (Auto) 1.6 1.0-4.8 K/uL Monocytes # (Auto) 0.6 0.1-1.0 K/uL Eosinophils # (Auto) 0.94 H 0.00-0.70 K/uL Basophils # (Auto) 0.04 0.00-0.20 K/uL Absolute Immature Granulocyte (auto 0.03 0-1 K/uL Red Blood Cell Morphology See comments Prothrombin Time 11.4 9.6-11.6 SEC Prothromb Time International Ratio 1.08 0.85-1.15 Current Medications Medications (Trade) Dose Ordered Sig/Donell Route PRN Reason Start Time Stop Time Status Last Admin Dose Admin Acetaminophen (TYLenol 325MG TAB) 650 mg Q6H PRN PO FEVER/MILD PAIN LEVEL 1-3 12/30/24 23:00 01/29/25 22:59 Acetaminophen (TYLenol 650MG SUPPOSITORY) 650 mg Q6H PRN RC FEVER / MILD PAIN 1-3 IF NPO 12/30/24 23:00 01/29/25 22:59 Dextrose (D50w) 50 ml AD PRN IV HYPOGLYCEMIA PROTOCOL 12/30/24 23:00 01/29/25 22:59 Dicyclomine HCl (Bentyl 20mg Tab) 20 mg BID PRN PO GI UPSET/UPSET STOMACH 12/31/24 09:00 01/30/25 08:59 Glucagon (Glucagon 1mg Kit) 1 mg AD PRN IM HYPOGLYCEMIA PROTOCOL 12/30/24 23:00 01/29/25 22:59 Insulin Human Regular (humuLIN R 100 UNIT/ML 3ML) INSULIN SLIDING SCAL... ACHS SQ 12/31/24 07:30 01/30/25 07:29 Labetalol HCl (TRANdate 20MG SYG) 10 mg Q2H PRN IV SBP GREATER THAN 160 12/30/24 23:00 01/29/25 22:59 Magnesium Sulfate 50 ml @ 0 mls/hr PROTOCOL PRN IV MAGNESIUM PROTOCOL 12/30/24 23:00 01/29/25 22:59 Mesalamine (Asacol Hd) 1,600 mg TID PO 12/31/24 14:00 01/30/25 13:59 Methylprednisolone Sodium Succinate (Solu-medROL 40MG) 60 mg DAILY13 IVP 01/01/25 13:00 01/03/25 14:00 Ondansetron HCl (zoFRAN 4MG INJ) 4 mg Q6H PRN IVP NAUSEA/VOMITING 12/30/24 23:00 01/29/25 22:59 Pantoprazole Sodium (PROTonix 40MG INJ) 40 mg BID IVP 12/31/24 09:00 01/30/25 08:59 Potassium Chloride/Sodium Chloride 1,000 ml @ 100 mls/hr Q10H IV 12/31/24 05:00 01/30/25 04:59 12/31/24 06:18 100 MLS/HR Potassium Chloride 100 ml @ 100 mls/hr AD PRN IV POTASSIUM PROTOCOL 12/30/24 23:00 01/29/25 22:59 Potassium Chloride (K-Dur/Klor-Con 20meq) 20 meq AD PRN PO POTASSIUM PROTOCOL 12/30/24 23:00 01/29/25 22:59 Potassium Chloride (KCl 10% Elixir 20meq/15ml) 20 meq AD PRN PO POTASSIUM PROTOCOL 12/30/24 23:00 01/29/25 22:59 Sodium Chloride 1,000 ml @ 100 mls/hr Q10H IV 12/30/24 23:00 01/29/25 22:59 12/30/24 23:08 100 MLS/HR Temazepam (restORIL 15 MG CAP) 15 mg HS PRN PO INSOMNIA/SLEEP 12/30/24 23:00 01/29/25 22:59 DIAGNOSTICS / RADIOLOGY: [ PATIENT: TIFF LOVING MR#: [id number] : 1995 SEX: F AGE: 29 LOCATION: [facility] ORDER 9 STATUS: ADM IN REPORT#: [id number] SERVICE 7 REASON: abd pain, severe anemia, hx ulcerative colitis ORDERING PHYSICIAN: MARIE HERNANDEZ BEEF SKINNER PROCEDURE: ABD PEL W - CT ABDOMEN/PELVIS W/CONTRAST EXAM: CT Abdomen and Pelvis with IV contrast CLINICAL HISTORY: Abdominal pain. Severe anemia. History of ulcerative colitis. TECHNIQUE: Thin collimated axial CT images of the abdomen and pelvis were obtained, with sagittal and coronal reformatted images also submitted. A CT scan is done according to ALARA (As Low As Reasonably Achievable). CONTRAST: Contrast information is not available. COMPARISON: Prior CT abdomen dated 11 February 2024 FINDINGS: Unremarkable visualized lung parenchyma. No focal abnormality within the liver, gallbladder, pancreas, spleen, adrenals, or kidneys. Subtle inflammatory wall thickening in the distal transverse, descending colon, and diffuse inflammatory wall thickening in the region of the sigmoid colon and in the rectum with submucosal edema and adjacent fat stranding. No evidence of diverticulosis or diverticulitis. No features of bowel obstruction or ileus. The appendix is normal. There is no abnormality within the urinary bladder. A fat attenuation 2.4 x 2.4 cm lesion in the left ovary, probably a left ovarian dermoid, and another 3.1 x 2.8 cm cyst follicular cyst, in the left ovary. The uterus and right ovary appear unremarkable. Abdominal and pelvic vessels are patent. No lymphadenopathy. No free fluid. There is no acute osseous abnormality. IMPRESSIONS: Subtle inflammatory wall thickening in the distal transverse, descending colon, and diffuse inflammatory wall thickening in the region of the sigmoid colon and in the rectum with submucosal edema and adjacent fat stranding. Consistent with the history of ulcerative colitis. No evidence of diverticulosis or diverticulitis. Normal contrast opacification of the abdominal aorta and visceral arteries. No significant narrowing or occlusion. A fat attenuation 2.4 x 2.4 cm lesion in the left ovary, probably a left ovarian dermoid, and another 3.1 x 2.8 cm cyst follicular cyst, in the left ovary. Compared to the prior study, redemonstrated inflammatory wall thickening in the descending, sigmoid colon, and rectum, more pronounced in the current scan. Stable left ovarian dermoid, interval development of 2.8 x 3.1 cm follicular cyst in the left ovary. /[place] DICTATED BY: DANY ACOSTA Jr., MD DATE: 12/31/24743 ELECTRONICALLY SIGNED BY: DANY ACOSTA Jr., MD DATE: 12/31/24743 ] ASSESSMENT: Severe iron deficiency anemia requiring blood transfusion, POA ulcerative colitis Anorexia 2/2 acute abdominal pain, POA Severe hypokalemia, POA Thrombocytosis, POA Acute dehydration/ketonuria, POA Malnutrition/Hypoalbuminemia, POA History of a recurrent anemia requiring blood transfusion, follows with Dr. Hopkins Nonadherence to medications and follow-up Severe iron deficiency anemia: - transfusion done with 1 pack of PRBCs yesterday night - hemoglobin improved from 5.5 to 7.5 - 1 dose of iron sucrose 200 mg IV given this morning - trend hemoglobin every 6 hr, transfuse to maintain hemoglobin>7 - follow Hematology recommendations ulcerative colitis: - Solu-Medrol 60 mg IV daily. - mesalamine 1600 mg PO TID daily - clear fluids now, NPO after midnight for colonoscopy in a.m. -GI prophylaxis with pantoprazole 40 mg IV b.i.d. -follow GI recommendations Severe hypokalemia: - potassium chloride/sodium chloride 1000 mL @ 100mls/hr Q10H IV - potassium improved from 2.5 to 3.3 -follow-up with urine electrolytes Malnutrition/Hypoalbuminemia: -consulted nutrition for dietary recommendations -follow nutrition recommendations as prescribed Further course of hospitalization depending on hematology and GI recommendations. Anticipate discharge in 24-48 hours. ATTESTATION BY PHYSICIAN I have seen and examined the patient. I reviewed the documentation, medical decision making, and treatment plan as noted by the resident provider above. I agree with the findings and plan of care. Galo Sheffield MD, ADIL SHAH QUADRI MD Dec 31, 2024 13:59
[2024-12-31] MEDS: PEG 3350/NA SULF,BICARB,CL/KCL 4000 ML SOLN PO ONE (14:22)
[2024-12-31] MEDS: MESALAMINE 800 MG TABLET.DR PO SCH (14:22)
--- NOTE | 2024-12-31 14:29 | NUR ---
Nutritional Note: Chart, meds, and labs Reviewed. Recommend: -when medically feasible advance diet to low residue GI soft diet -Nephrovite MVI combination of B vitamins may be used to treat or prevent vitamin deficiency due to poor diet. -Magic Cup 4oz w/ PM tray: Provides 9gm pro/ 290kcal and 20 vitamins and minerals. [place] to serve with meals as a means of adding calories and protein for unintended weight loss. -ProStat BID (30 ml) JELLO -Continue FE supplement, -check zinc and vit d common deficiencies in UC -Consider alternate nutrition support if oral intake inadequate and prolonged >3-5days. - Electrolyte replacements per protocol -Monitor feeding tolerance, %, wt, and labs -Document PO intake and wt daily. -If No BM >3days consider bowel stimulant. -Consider appetite stimulant if intake remains <75%for 3 days. -Schedule outpatient RD f/u for long-term nutrition care. - Notify RD if additional nutrition concerns arise. SEE RD Nutritional Assessment for additional assessment information. Addendum: 12/31/24 at [address] Amended: Links added.
[2024-12-31 15:36] LABS: NUCLEATED RED BLOOD CELLS 0.2 % (0.0-0.19); PLATELET COUNT (AUTO) 474.0 K/uL (130-400); RED BLOOD CELL COUNT(AUTO) 3.87 MIL/uL (4.00-5.50); RED CELL DISTRIBUTION WIDTH 23.8 % (11.0-15.5); WHITE BLOOD COUNT (AUTO) 11.9 K/uL (4.8-10.8)
[2024-12-31 15:42] LABS: CREATININE 0.5 mg/dL (0.5-1.0); GLOMERULAR FILTR. RATE CALC 131.0 mL/min (>90); GLUCOSE,RANDOM 93.0 mg/dL (70-105); SODIUM SERUM 137.0 mmol/L (136-145); UREA NITROGEN, BLOOD 3.0 mg/dL (7-18)
--- NOTE | 2024-12-31 19:55 | NUR ---
VENOFER CLARIFICATION WITH PHARMACY PATIENT WAS NOT ADMINISTERED VENOFER THAT WAS SCHEDULED FOR 0800. CALL PLACED TO PHARMACY ABOUT POSSIBLY CHANGING THE TIME TO BE GIVEN TONIGHT AT 2000. RACHEL PHARMACIST VOICED WILL CHANGE TIME.
[2024-12-31] MEDS: PoTASSium chl 10% ELIXIR 20MEQ 20 MEQ/15 ML UDCUP PO PRN (20:19)
[2024-12-31] MEDS: PoTASSium chloRIDE 20MEQ ER 20 MEQ ERTAB PO PRN (20:19)
[2024-12-31 21:30] LABS: NUCLEATED RED BLOOD CELLS 0.0 % (0.0-0.19); PLATELET COUNT (AUTO) 499.0 K/uL (130-400); RED BLOOD CELL COUNT(AUTO) 3.78 MIL/uL (4.00-5.50); RED CELL DISTRIBUTION WIDTH 23.6 % (11.0-15.5); WHITE BLOOD COUNT (AUTO) 11.4 K/uL (4.8-10.8)
[2024-12-31 21:46] LABS: CREATININE 0.4 mg/dL (0.5-1.0); GLOMERULAR FILTR. RATE CALC 138.0 mL/min (>90); GLUCOSE,RANDOM 90.0 mg/dL (70-105); SODIUM SERUM 135.0 mmol/L (136-145); UREA NITROGEN, BLOOD 3.0 mg/dL (7-18)
[2025-01-01] VITALS (23 sets, daily range): BP systolic 92–122; BP diastolic 34–65; PULSE 63–86; RESP 15–20; TEMP 97–98.8; O2SAT 92
--- NOTE | 2025-01-01 02:41 | NUR ---
CALL PLACED TO [facility]. SPOKE WITH CHERELLE END FINDER TWISTING DEPARTMENT ABOUT PATIENT HAVING 2 TYPES OF FLUID ON FILE. ADVISED TO CHECK MORNING LABS ON TRENDING UP OF POTASSIUM. IF CONTINUES TO TREND UPWARD OKAY TO CONTINUE WITH NORMAL SALINE AT 100CC/HR AND STOP NS +20MEQ POTASSIUM CHLORIDE. ORDERS NOTED AND CARRIED OUT.
[2025-01-01 04:41] LABS: NUCLEATED RED BLOOD CELLS 0.2 % (0.0-0.19); PLATELET COUNT (AUTO) 464.0 K/uL (130-400); RED BLOOD CELL COUNT(AUTO) 3.34 MIL/uL (4.00-5.50); RED CELL DISTRIBUTION WIDTH 23.6 % (11.0-15.5); WHITE BLOOD COUNT (AUTO) 9.3 K/uL (4.8-10.8)
[2025-01-01 04:51] LABS: CREATININE 0.5 mg/dL (0.5-1.0); GLOMERULAR FILTR. RATE CALC 131.0 mL/min (>90); GLUCOSE,RANDOM 80.0 mg/dL (70-105); SODIUM SERUM 137.0 mmol/L (136-145); UREA NITROGEN, BLOOD 3.0 mg/dL (7-18)
--- NOTE | 2025-01-01 09:05 | PN ---
LOCATION: [facility]. SUBJECTIVE: The patient is doing well overnight. She is still getting blood. She is awake and alert. She is to go for colonoscopy today. She is in good spirits. PHYSICAL EXAMINATION: GENERAL: Shows a pleasant woman. VITAL SIGNS: Blood pressure 113/53, pulse 75, respirations 20. HEENT: Benign. CHEST: Clear. ABDOMEN: Soft. IMPRESSION: * Ulcerative colitis with ongoing GI bleeding. * Iron deficiency anemia. * Hypokalemia, reactive thrombocytosis. PLAN: Continue transfusion. Give her IV iron. Agree with the colonoscopy. She is on systemic therapy for the ____. TID: [id number] RECEIPT: [id number]
[2025-01-01] MEDS: Solu-medROL 40MG VIAL IVP SCH (13:34)
[2025-01-01 14:01] LABS: CREATININE 0.3 mg/dL (0.5-1.0); GLOMERULAR FILTR. RATE CALC 148.0 mL/min (>90); GLUCOSE,RANDOM 85.0 mg/dL (70-105); SODIUM SERUM 137.0 mmol/L (136-145); UREA NITROGEN, BLOOD 3.0 mg/dL (7-18)
[2025-01-01 14:23] LABS: HEPATITIS B CORE AB TOTAL Non-Reactive (Nonreactive); HEPATITIS B CORE IGM ANTIBODY Non-Reactive (Negative); HEPATITIS B SURFACE ANTIBODY Negative (Reactive)
--- NOTE | 2025-01-01 17:03 | PN ---
[facility] PROGRESS NOTE Date of Service: Jan 01, 2025 Time of Service: 16:36 SUBJECTIVE: Mr. Loving is a 29 year-old female with a history of ulcerative colitis, GI bleeding, and anemia for many years who presented with [facility] for evaluation of generalized body weakness onset a couple days. The patient was sent by PCP for evaluation and treatment of of low hemoglobin. The patient also complained of intermittent abdominal pain. Her GI physician: Dr. Philomena Tam. Senior Credit Officer: Dr. Hopkins. VS: HR 90 bpm, RR 16bpm, BP 112/76, 100% RA, 98.2 F. Labs: Chemistry: Potassium 2.5, BUN 4, Calcium 8.0, Hematology: RBC 2.99, Hgb 5.5, Hct 20.0, MCV 66.9, MCH 18.4, MCHC 27.5 RDW 23.5, PIt Count 515, Urine: UA: Negative Nitrate, negative Leukocyte est, UA: Occult Blood: +- (TRACE). No radiology results done in ED. ED administered potassium 50 mEq p.o., potassium 10 mEq IV., Protonix 40 mg IV. ED provider requested patient be admitted to the hospital with the diagnosis of ulcerative colitis, anemia, hypokalemia. I assessed the patient at bedside in ED 19. The patient's breathing was even, unlabored, appeared comfortable, in no distress. The patient was receiving PRBCs. I informed her of labs, diagnostics, and plan of care. She verbalized understanding and is in agreement with the plan. Plan and assessment are listed below. 12/31/24: Patient seen at bedside in room 411. Case discussed with RN, no overnight events. She received one PRBCs transfusion yesterday night, patient says she is feeling better now. Her hemoglobin increased from 5.5t o 7.5, RBC from 2.99 to 3.55, her potassium has improved from 2.5 to 3.[address] abdomen/pelvis shows subtle inflammatory wall thickening in distal transverse, descending colon and diffuse inflammatory wall thickening in the region of the sigmoid colon and in the rectum with submucosal edema and adjacent fat stranding consistent with ulcerative colitis. No evidence of diverticulosis or diverticulitis. Left ovary shows dermoid, follicular cyst on CT. She is on clear diet now, NPO from midnight for colonoscopy in a.m. tomorrow as per GI recommendations. Methylprednisolone 60 mg IV, Mesalamine 1600 mg p.o. t.i.d. for ulcerative colitis. Trend hemoglobin every 6 hours and transfuse as needed to goal hemoglobin >7. 01/01/25: Patient Seen at bedside in room 411. Case discussed with RN, patient hemoglobin dropped to 6.9 around 4:00 a.m, received 1 pack of PRBC transfusion. Patient was on NPO since midnight to undergo colonoscopy. Patient's blood pressure 104/53, heart rate 71, RR 15, saturating 97% at room air. Patient has no other complaints except for mild abdominal with pain bowel movements. Patient denies shortness of breath, chest pain, palpitations, nausea, vomiting. Case has been discussed with gastro MASTER AUTOMOTIVE TECHNICIAN, she said they want to start IV steroids for 3 days, planning to discharge on Sunday. Continue treatment as per GI recommendations, trend hemoglobin every 6 hours and transfuse as needed to goal hemoglobin > 7. REVIEW OF SYSTEMS 12-point ROS reviewed with the patient. All pertinent positives mentioned above. Otherwise negative, noncontributory, non-pertinent. PHYSICAL EXAM GENERAL APPEARANCE: The patient is awake, alert, and oriented, in no acute cardiopulmonary distress. HEENT: Face is symmetric. Pupils are equal and reactive. Extraocular movements are intact. NECK: Supple. No JVD. No thyromegaly. No submental, submandibular, pre-/po stauricular, occipital or supraclavicular lymphadenopathy. CHEST: Normal chest expansion. No Telemetry. LUNGS: Absence of any rales, rhonchi or any wheezing. CARDIOVASCULAR: Regular. S1 and S2 normal. No appreciable rubs, murmurs or gallops. ABDOMEN: Soft, nontender, and nondistended. There is no rebound, voluntary guarding, or rigidity. : Deferred. No Nicole. EXTREMITIES: Non-edematous and not cyanotic. No clubbing. Good capillary refill. SKIN: No skin breakdown. Vital Signs (last 8hr) Date Time Temp Pulse Resp B/P (MAP) Pulse Ox O2 Delivery O2 Flow Rate FiO2 01/01/25 13:00 68 16 101/57 98 Room Air 21 01/01/25 12:45 67 16 95/35 100 Room Air 21 01/01/25 12:30 75 16 99/57 99 Room Air 21 01/01/25 12:15 63 16 100/46 98 Room Air 21 01/01/25 12:00 97.9 72 16 98/34 100 Room Air 21 01/01/25 11:45 97.2 71 15 99/51 97 Room Air 01/01/25 11:40 71 16 98/53 98 Room Air 01/01/25 11:35 74 16 98/51 99 Room Air 01/01/25 11:30 72 17 99/51 99 Room Air 01/01/25 11:25 70 16 98/52 100 Nasal Cannula 3.0 01/01/25 11:20 73 18 99/51 100 Nasal Cannula 3.0 01/01/25 11:15 97.0 64 17 92/50 99 Nasal Cannula 3.0 01/01/25 10:53 Mask 01/01/25 10:53 Mask 10.0 LABS: Laboratory: Test 01/01/25 13:40 01/01/25 09:29 01/01/25 05:06 01/01/25 03:52 Range/Units Sodium Level 137 136-145 mmol/L Potassium Level 3.5 3.5-5.1 mmol/L Chloride Level 107 101-111 mmol/L Carbon Dioxide Level 22 21-32 mmol/L Blood Urea Nitrogen 3 L 7-18 mg/dL Creatinine 0.3 L 0.5-1.0 mg/dL Glomerular Filtration Rate Calc 148 >90 mL/min Random Glucose 85 70-105 mg/dL Total Calcium 7.5 L 8.5-10.1 mg/dL Hemoglobin 8.7 #L 12.0-16.0 g/dL Hematocrit 28.9 #L 36-48 % Whole Blood Glucose 77 70-110 MG/DL White Blood Count 9.3 4.8-10.8 K/uL Red Blood Count 3.34 L 4.00-5.50 MIL/uL Mean Corpuscular Volume 71.0 L 79-99 fL Mean Corpuscular Hemoglobin 20.7 L 27.0-33.0 pg Mean Corpuscular Hemoglobin Concent 29.1 L 32.0-36.0 g/dL Red Cell Distribution Width 23.6 H 11.0-15.5 % Platelet Count 464 H 130-400 K/uL Mean Platelet Volume 9.9 7.5-10.5 fL Nucleated Red Blood Cells 0.2 H 0.0-0.19 % Test 12/31/24 16:29 12/31/24 15:15 12/31/24 09:13 12/31/24 05:00 Range/Units Bedside Glucose Comment Notified Nurse Hepatitis B Surface Antigen. Non-Reactive Nonreactive Hepatitis B Surface Antibody. Negative L Reactive Hepatitis B Core Total Antibody. Non-Reactive Nonreactive Hepatitis B Core IgM Antibody Non-Reactive Negative Reticulocyte Count (auto) 1.96670 0.42-2.23 % Immature Reticulocyte Fraction 5.70 H 0.18-0.48 % Whole Blood Ketones Quantitative 0.4 0.0-0.6 mmol/L Iron Level 11 L 50-170 mcg/dL Total Iron Binding Capacity 258 250-450 mcg/dL Percent Iron Saturation 4.2 L 22-44 % Ferritin 21 15-150 ng/mL C-Reactive Protein, Quantitative 1.50 0.5-3.0 mg/L Vitamin B12 Level 1562 H 193-986 pg/mL Folic Acid (LAB) 17.10 2-20 ng/mL Influenza Type A Antigen Negative For Type A NEGATIVE Influenza Type B Antigen Negative For Type B NEGATIVE SARS-CoV-2, RNA, NAAT NEGATIVE SARS CoV-2 NEGATIVE Test 12/31/24 04:55 12/31/24 04:45 12/30/24 23:10 12/30/24 20:55 Range/Units Hemoglobin A1c 4.6 4.0-6.0 % Estimated Average Glucose (eAG) 85 70-126 mg/dL Phosphorus Level 3.5 2.5-4.9 mg/dL Magnesium Level 2.10 1.80-2.40 mg/dL Thyroid Stimulating Hormone (TSH) 0.89 0.36-3.74 uIU/mL Urine HCG, Qualitative NEGATIVE NEGATIVE Total Bilirubin 0.3 0.2-1.0 mg/dL Aspartate Amino Transf (AST/SGOT) 12 10-37 U/L Alanine Aminotransferase (ALT/SGPT) 15 12-78 U/L Alkaline Phosphatase 66 50-136 U/L Total Protein 6.8 6.0-8.3 g/dL Albumin 3.0 L 3.5-5.0 g/dL Urine Color COLORLESS YELLOW Urine Appearance CLEAR CLEAR Urine pH 7.0 5.0-8.0 Urine Specific [place] 1.005 1.001-1.031 Urine Protein NEGATIVE NEGATIVE mg/dL Urine Glucose (UA) NEGATIVE NEGATIVE mg/dL Urine Ketones 20 H NEGATIVE mg/dL Urine Occult Blood +- (TRACE) H NEGATIVE Urine Nitrate NEGATIVE NEGATIVE Urine Bilirubin NEGATIVE NEGATIVE mg/dL Urine Urobilinogen 0.2 0.2-1.0 mg/dL Urine Leukocyte Esterase NEGATIVE NEGATIVE [place]/uL Urine RBC 0-1 0-1 /HPF Urine WBC 2-5 H 0-1 /HPF Urine Squamous Epithelial Cells RARE 0-2 /HPF Urine Bacteria RARE None Seen /HPF Test 12/30/24 19:55 Range/Units Immature Granulocyte % (Auto) 0.3 0-1 % Neutrophils (%) (Auto) 67.1 40.0-77.0 % Lymphocytes (%) (Auto) 16.0 L 21.0-51.0 % Monocytes (%) (Auto) 6.5 3.0-13.0 % Eosinophils (%) (Auto) 9.7 H 0.0-8.0 % Basophils (%) (Auto) 0.4 0.0-5.0 % Neutrophils # (Auto) 6.5 1.8-7.7 K/uL Lymphocytes # (Auto) 1.6 1.0-4.8 K/uL Monocytes # (Auto) 0.6 0.1-1.0 K/uL Eosinophils # (Auto) 0.94 H 0.00-0.70 K/uL Basophils # (Auto) 0.04 0.00-0.20 K/uL Absolute Immature Granulocyte (auto 0.03 0-1 K/uL Red Blood Cell Morphology See comments Prothrombin Time 11.4 9.6-11.6 SEC Prothromb Time International Ratio 1.08 0.85-1.15 Current Medications Medications (Trade) Dose Ordered Sig/Donell Route PRN Reason Start Time Stop Time Status Last Admin Dose Admin Acetaminophen (TYLenol 325MG TAB) 650 mg Q6H PRN PO FEVER/MILD PAIN LEVEL 1-3 12/30/24 23:00 01/29/25 22:59 12/31/24 21:56 650 MG Acetaminophen (TYLenol 650MG SUPPOSITORY) 650 mg Q6H PRN RC FEVER / MILD PAIN 1-3 IF NPO 12/30/24 23:00 01/29/25 22:59 Dextrose (D50w) 50 ml AD PRN IV HYPOGLYCEMIA PROTOCOL 12/30/24 23:00 01/29/25 22:59 Dicyclomine HCl (Bentyl 20mg Tab) 20 mg BID PRN PO GI UPSET/UPSET STOMACH 12/31/24 09:00 01/30/25 08:59 Glucagon (Glucagon 1mg Kit) 1 mg AD PRN IM HYPOGLYCEMIA PROTOCOL 12/30/24 23:00 01/29/25 22:59 Insulin Human Regular (humuLIN R 100 UNIT/ML 3ML) INSULIN SLIDING SCAL... ACHS SQ 12/31/24 07:30 01/30/25 07:29 Labetalol HCl (TRANdate 20MG SYG) 10 mg Q2H PRN IV SBP GREATER THAN 160 12/30/24 23:00 01/29/25 22:59 Magnesium Sulfate 50 ml @ 0 mls/hr PROTOCOL PRN IV MAGNESIUM PROTOCOL 12/30/24 23:00 01/29/25 22:59 Mesalamine (Asacol Hd) 1,600 mg TID PO 12/31/24 14:00 01/30/25 13:59 01/01/25 13:34 1,600 MG Methylprednisolone Sodium Succinate (Solu-medROL 40MG) 60 mg DAILY13 IVP 01/01/25 13:00 01/03/25 14:00 01/01/25 13:34 60 MG Ondansetron HCl (zoFRAN 4MG INJ) 4 mg Q6H PRN IVP NAUSEA/VOMITING 12/30/24 23:00 01/29/25 22:59 Pantoprazole Sodium (PROTonix 40MG INJ) 40 mg BID IVP 12/31/24 09:00 01/30/25 08:59 01/01/25 08:19 40 MG Potassium Chloride/Sodium Chloride 1,000 ml @ 100 mls/hr Q10H IV 12/31/24 05:00 01/30/25 04:59 01/01/25 13:34 100 MLS/HR Potassium Chloride 100 ml @ 100 mls/hr AD PRN IV POTASSIUM PROTOCOL 12/30/24 23:00 01/29/25 22:59 Potassium Chloride (K-Dur/Klor-Con 20meq) 20 meq AD PRN PO POTASSIUM PROTOCOL 12/30/24 23:00 01/29/25 22:59 12/31/24 20:19 20 MEQ Potassium Chloride (KCl 10% Elixir 20meq/15ml) 20 meq AD PRN PO POTASSIUM PROTOCOL 12/30/24 23:00 01/29/25 22:59 12/31/24 20:19 20 MEQ Sodium Chloride 1,000 ml @ 100 mls/hr Q10H IV 12/30/24 23:00 01/01/25 05:18 DC 12/30/24 23:08 100 MLS/HR Temazepam (restORIL 15 MG CAP) 15 mg HS PRN PO INSOMNIA/SLEEP 12/30/24 23:00 01/29/25 22:59 DIAGNOSTICS / RADIOLOGY: [ ] ASSESSMENT: Severe iron deficiency anemia requiring blood transfusion, POA ulcerative colitis Anorexia 2/2 acute abdominal pain, POA Severe hypokalemia, POA Thrombocytosis, POA Acute dehydration/ketonuria, POA Malnutrition/Hypoalbuminemia, POA History of a recurrent anemia requiring blood transfusion, follows with Dr. Hopkins Nonadherence to medications and follow-up Severe iron deficiency anemia: - transfusion done with 1 pack of PRBCs this morning - hemoglobin improved from 6.9 to 8.7 - trend hemoglobin every 6 hr, transfuse to maintain hemoglobin>7 - follow Hematology recommendations ulcerative colitis: - Solu-Medrol 60 mg IV for three days. - mesalamine 1600 mg PO TID daily -GI prophylaxis with pantoprazole 40 mg IV b.i.d. -follow GI recommendations Severe hypokalemia: - potassium chloride/sodium chloride 1000 mL @ 100mls/hr Q10H IV - potassium improved from 3.3 to 3.5 -follow-up with urine electrolytes Malnutrition/Hypoalbuminemia: -consulted nutrition for dietary recommendations - low residue GI soft diet, B vitamin combination for vitamin deficiency -magic4 Oz/ PM tray provides 9 g protein 290 kilocalories and 20 vitamins and minerals - check zinc and vitamin-D common deficiency seen in ulcerative colitis Further course of hospitalization depending on hematology and GI recommendations. Anticipate discharge after 48 hours hours. ATTESTATION BY PHYSICIAN I have seen and examined the patient. I reviewed the documentation, medical decision making, and treatment plan as noted by the resident provider above. I agree with the findings and plan of care. Ernesto Etienne MD, ADIL SHAH QUADRI MD Jan 01, 2025 17:03
[2025-01-01 17:31] LABS: NUCLEATED RED BLOOD CELLS 0.2 % (0.0-0.19); PLATELET COUNT (AUTO) 488.0 K/uL (130-400); RED BLOOD CELL COUNT(AUTO) 4.23 MIL/uL (4.00-5.50); RED CELL DISTRIBUTION WIDTH 23.9 % (11.0-15.5); WHITE BLOOD COUNT (AUTO) 11.9 K/uL (4.8-10.8)
[2025-01-01 17:50] LABS: CREATININE 0.4 mg/dL (0.5-1.0); GLOMERULAR FILTR. RATE CALC 138.0 mL/min (>90); GLUCOSE,RANDOM 89.0 mg/dL (70-105); SODIUM SERUM 136.0 mmol/L (136-145); UREA NITROGEN, BLOOD 3.0 mg/dL (7-18)
--- NOTE | 2025-01-01 21:00 | NUR ---
MEDS SHIFT ASSESSMENT DONE, PLEASE REFER TO CHART. DUE MEDS ADMINISTERED, TOLERATED WELL. KEPT RESTED AND COMFORTABLE IN CHAIR. CALL LIGHT WITHIN REACH.
[2025-01-02] VITALS: BP 92/47; PULSE 57; RESP 17; TEMP 98.3
[2025-01-02 04:00] VITALS: BP 91/46; PULSE 65; RESP 20; TEMP 98.1
--- NOTE | 2025-01-02 05:20 | NUR ---
ROUNDS PT SLEPT AT INTERVALS DURING THE SHIFT. NO DISTRESS NOTED. KEPT RESTED AND COMFORTABLE IN BED. CALL LIGHT WITHIN REACH. FOR MORE CARE.
[2025-01-02 05:47] LABS: C DIFFICILE TOXIN A/B Not Detected (Not Detected); ENTEROAGGREGATIVE ECOLI Not Detected (Not Detected); GIARDIA LAMBLIA Not Detected (Not Detected); PLESIOMONAS SHIGELOIDES Not Detected (Not Detected); SAPOVIRUS Not Detected (Not Detected); SHIGELLA/ENTEROINVASIVE E COLI Not Detected (Not Detected); VIBRIO Not Detected (Not Detected); VIBRIO CHOLERAE Not Detected (Not Detected)
[2025-01-02] MEDS: MAGNESIUM 2GM PREMIX 50ML 50 ML IV PRN (06:42)
[2025-01-02 07:21] LABS: CREATININE 0.5 mg/dL (0.5-1.0); GLOMERULAR FILTR. RATE CALC 131.0 mL/min (>90); GLUCOSE,RANDOM 60.0 mg/dL (70-105); SODIUM SERUM 138.0 mmol/L (136-145); UREA NITROGEN, BLOOD 3.0 mg/dL (7-18)
--- NOTE | 2025-01-02 07:38 | PN ---
SUBJECTIVE: The patient had a colonoscopy. She is awake, alert, and no further bleeding. She can be started on steroids. PHYSICAL EXAMINATION: VITAL SIGNS: Blood pressure 91/46, pulse 65, respiratory rate 20. HEENT: Benign. CHEST: Clear. ABDOMEN: Soft. EXTREMITIES: Show no edema. LABORATORY DATA: Hemoglobin is 9. IMPRESSION: * Lower gastrointestinal bleed from ulcerative colitis. * Ulcerative colitis. * Anemia. PLAN: Discharge home today. We will see her back in a week. TID: [id number] RECEIPT: [id number]
[2025-01-02 07:55] LABS: IMMATURE GRANULOCYTE ABSOLUTE 0.03 K/uL (0-1); NUCLEATED RED BLOOD CELLS 0.0 % (0.0-0.19); PLATELET COUNT (AUTO) 440 K/uL (130-400); RED BLOOD CELL COUNT(AUTO) 3.83 MIL/uL (4.00-5.50); RED CELL DISTRIBUTION WIDTH 24.0 % (11.0-15.5); WHITE BLOOD COUNT (AUTO) 8.5 K/uL (4.8-10.8)
[2025-01-02 08:00] VITALS: BP 106/58; PULSE 68; RESP 16; TEMP 97.9; O2SAT 100
--- NOTE | 2025-01-02 11:27 | DS ---
Discharge Summary Hospital Course Summary: 29 year old female with past medical history of ulcerative colitis, iron- deficiency anemia came to ED on 12/30 around 8:00 p.m. with chief complaints of generalized body weakness for 1 week. She was evaluated by her PCP for low hemoglobin levels, sent her to [facility] for further management. On arrival her hemoglobin at 5.5, RBC 2.99, HCT 20.0, platelet count 515, WBC 9.7. Her potassium at 2.5, sodium 138, chloride 101, bicarbonate 28. Her PT, INR within normal range. Urinalysis negative for nitrate, leukocyte esterase. 1 pack of PRBC transfusion was started at 11:00 p.m. along with potassium replacement. Ordered CT scan abdomen and pelvis, consultation from GI and Hematology. CT scan showed subtle inflammatory wall thickening in distal transverse, descending colon, and diffuse inflammatory wall thickening in region of sigmoid colon and in the rectum with submucosal edema and adjacent fat stranding, consistent with ulcerative colitis. No evidence of diverticulosis or diverticulitis. Shows dermoid, follicular cyst on CT. Patient got 2nd blood transfusion with PRBCs on 01/01 at 6:00 a.m. patient was started on NPO and scheduled for colonoscopy as per GI recommendations. Colonoscopy reveals pancolitis, severe inflammation phone from anus to cecum , sent for biopsy. She received mesalamine 1600 mg t.i.d. p.o., pantoprazole 40 mg IV b.i.d. potassium chloride 1000 mL Q 10 H IV for 4 days, Solu-Medrol 60 mg IV daily at 1:00 p.m. for 2 days. On 01/02 patient is doing good, her vitals are stable, hemoglobin at 8.6, hematocrit 29, WBCs 8.5, platelets 440. Her potassium at 3.9, sodium 138. Patient is clinically stable for discharge with prednisone taper over a period of 7 weeks along with mesalamine 1600 mg t.i.d. for 30 days. Follow-up with PCP and dermatologist in 1 week, follow-up with principal electrical engineer in 2 weeks. [employer] Worker(s): CONSULTATION REPORT Name: TIFF TEJEDA Acct: [id number] MR: [id number] : 1995 Admit Date: 12/30/24 JING BURTON MD [place] [address] [place] [address] LOCATION: 411. REFERRING PHYSICIAN: Brooklynn Ortiz. REASON FOR CONSULTATION: Iron deficiency anemia and GI bleeding. HISTORY OF PRESENT ILLNESS: This is a 29-year-old woman, well known to me with ulcerative colitis and iron deficiency anemia, I see in conjunction with Dr. Philomena Kang. She called my office late yesterday with hemoglobin of 5. We talked it over and decided it would be better if she come to the hospital for a possible transfusion. She is admitted by the hospitalist who gave her a unit of blood overnight. She looks fine this morning. She has had some bleeding, but just took her Enbrel shot yesterday, which is treatment of her ulcerative colitis. PAST MEDICAL HISTORY: Ulcerative colitis as noted above, iron deficiency anemia. PAST SURGICAL HISTORY: Multiple endoscopies, , previous transfusions. MEDICATIONS: See intake sheet. ALLERGIES: CEFEPIME AND AMOXICILLIN CAUSED REACTIONS. FAMILY HISTORY: Negative for inflammatory bowel disease. SOCIAL HISTORY: She lives with her family. Does not smoke or drink. She is actually very active. REVIEW OF SYSTEMS: HEENT: Negative. CARDIOVASCULAR: Negative for chest pain, palpitations, PND. PULMONARY: Negative for cough. GASTROINTESTINAL: As above, intermittent bleeding. GENITOURINARY: Negative for hematuria or dysuria. PHYSICAL EXAMINATION: VITAL SIGNS: Blood pressure 99/57, pulse 68, respirations 20. HEENT: Benign. CHEST: Clear. ABDOMEN: Soft. EXTREMITIES: Show no edema. NEUROLOGICAL: Alert and oriented. IMPRESSION: GI bleeding from ulcerative colitis, ulcerative colitis, iron deficiency anemia, other problems as listed. PLAN: Repeat her CBC. If she is going to stay another day, I would give her a shot of Venofer or equivalent, whatever the hospital has in terms of iron replacement. Protonix IV prophylactically. I suspect she does not really need to be rescoped since we already know her diagnosis, but certainly, I would consult GI, Dr. Kang. If the bleeding subsides, I think she can go home and follow up in the clinic tomorrow. She looks perfectly stable. Thank you for the consult. TID: [id number] RECEIPT: [id number] Electronically Signed by: Electronically Co-Signed by: CONSULTATION REPORT Name: TIFF TEJEDA Acct: [id number] MR: [id number] : 1995 Admit Date: 12/30/24 ERIS MARTIN NP [place] [id number] [place] [address] GASTROENTEROLOGY CONSULTATION NOTE Date of Consultation: Dec 31, 2024 Time of Consultation: 09:25 History of Present Illness: [This is a 29-year-old female patient known to our service with past medical history for ulcerative colitis, iron-deficiency anemia, gastritis, hypothyroidism, vitamin-D deficiency, who presented to the emergency room with complaints of generalized body weakness. Patient had been evaluated by her PCP and was told she had low hemoglobin. Patient was last seen at our clinic on 10/28/2024 where she had been prescribed azathioprine tablets, Humira pen kit 40mg/0.4mL to be given SQ every other week, and dicyclomine 20 mg for abdominal pain. Patient has been lost to follow up. Initial WBC of 9.7, hemoglobin 5.5, MCV 66.9, platelets 515. Chemistries significant for potassium of 3.4, BUN five, creatinine 0.4, calcium 8.2. LFTs are normal. Albumin 3.0. TSH 0.89. UA positive for blood 20 of ketones. Patient has received 1 unit of leukocytes RBCs. Repeat CBC pending. CT of abdomen w/contrast findings: Subtle inflammatory wall thickening in the distal transverse, descending colon, and diffuse inflammatory wall thickening in the region of the sigmoid colon and in the rectum with submucosal edema and adjacent fat stranding. Consistent with the history of ulcerative colitis. No evidence of diverticulosis or diverticulitis. Normal contrast opacification of the abdominal aorta and visceral arteries. No significant narrowing or occlusion. A fat attenuation 2.4 x 2.4 cm lesion in the left ovary, probably a left ovarian dermoid, and another 3.1 x 2.8 cm cyst follicular cyst, in the left ovary. On exam, patient is sitti ng in bed a,a,&o x3 in no acute distress. Her respirations are even and unlabored with bbs clear. Abdomen is soft, nondistended and nontender. Active BS present. She reports she had Humira injection on 12/24/24. Oriented to poc and recommendations for colonoscopy tomorrow followed by Iv methylprednisone infusion x 3 days then po. Patient verbalized understanding and agreement. ] Review of Systems: CONSTITUTIONAL: No malaise or change in sensation of wellbeing. ENMT: No rhinorrhea, otorrhea, sinus pain, ear ache. CARDIOVASCULAR: No angina, palpitations, orthopnea or paroxysmal dyspnea. RESPIRATORY: No SOB. GASTROINTESTINAL: No abdominal pain, nausea, vomiting, diarrhea, hematemesis, melena or change in the patient's habitual bowel movements consistency/number. GENITOURINARY: No dysuria, hematuria or change in bladder continence. MUSCULOSKELETAL: No new muscle pain or decrease in muscular strength. No new joint swelling, redness or tenderness. SKIN: No new rash. Past Medical History: Past Medical History: Ulcerative Colitis, Iron deficiency anemia, Vitamin D deficiency, Hypothyroidism, Gastritis, Past Surgical History: 02/03/23, Tonsillectomy, Adenoidectomy Coded Allergies: cefepime (Unverified Allergy, Intermediate, SWELLING, 02/11/24) HIVES, rash amoxicillin (Unverified Allergy, Unknown, RASH, ITCHING, 02/04/24) Physical Exam GEN: Awake, alert, oriented in person, time and place, and in no acute distress. HEENT: No rhinorrhea. Oral pharyngeal mucosa is pink, moist and within normal limits. CHEST: Inspection, and palpation of the chest were unremarkable. Lung auscultation revealed normal breath sounds bilaterally. CARDIAC: PMI is within normal limits. Heart sounds are regular. ABD: Soft, non-tender and not distended. No peritoneal signs on palpation. No organomegaly. Normal bowel sounds. Last bm 12/31/24. EXT: No cyanosis or clubbing. No edema. SKIN: Intact. No rashes. JOINTS: No evidence of synovitis or acute arthritis. NEURO: Alert and oriented to name, place and person. Cranial nerve examination is unremarkable. No focal motor deficits. Normal speech. Steady gait noted. Strength is normal. Vital Sign (Last 24 Hours) 12/31/24 12/31/24 05:50 08:00 Temp 98.1 Pulse 63 Resp 18 B/P (MAP) 101/59 Pulse Ox 100 O2 Delivery Room Air O2 Flow Rate 0 FiO2 21 Laboratory: [ ] Laboratory: Test 12/31/24 06:11 12/31/24 05:00 12/31/24 04:55 12/31/24 04:45 Range/Units Whole Blood Glucose 92 70-110 MG/DL Influenza Type A Antigen Negative For Type A NEGATIVE Influenza Type B Antigen Negative For Type B NEGATIVE SARS-CoV-2, RNA, NAAT NEGATIVE SARS CoV-2 NEGATIVE White Blood Count 4.8-10.8 K/uL Red Blood Count 4.00-5.50 MIL/uL Hemoglobin 12.0-16.0 g/dL Hematocrit 36-48 % Mean Corpuscular Volume 79-99 fL Mean Corpuscular Hemoglobin 27.0-33.0 pg Mean Corpuscular Hemoglobin Concent 32.0-36.0 g/dL Red Cell Distribution Width 11.0-15.5 % Platelet Count 130-400 K/uL Mean Platelet Volume 7.5-10.5 fL Nucleated Red Blood Cells 0.0 0.0-0.19 % Sodium Level 137 136-145 mmol/L Potassium Level 3.4 L 3.5-5.1 mmol/L Chloride Level 101 101-111 mmol/L Carbon Dioxide Level 28 21-32 mmol/L Blood Urea Nitrogen 5 L 7-18 mg/dL Creatinine 0.4 L 0.5-1.0 mg/dL Glomerular Filtration Rate Calc 138 >90 mL/min Random Glucose 94 70-105 mg/dL Hemoglobin A1c 4.6 4.0-6.0 % Estimated Average Glucose (eAG) 85 70-126 mg/dL Total Calcium 8.2 L 8.5-10.1 mg/dL Phosphorus Level 3.5 2.5-4.9 mg/dL Magnesium Level 2.10 1.80-2.40 mg/dL Thyroid Stimulating Hormone (TSH) 0.89 0.36-3.74 uIU/mL Urine HCG, Qualitative NEGATIVE NEGATIVE Test 12/30/24 23:10 12/30/24 20:55 12/30/24 19:55 Range/Units Total Bilirubin 0.3 0.2-1.0 mg/dL Aspartate Amino Transf (AST/SGOT) 12 10-37 U/L Alanine Aminotransferase (ALT/SGPT) 15 12-78 U/L Alkaline Phosphatase 66 50-136 U/L Total Protein 6.8 6.0-8.3 g/dL Albumin 3.0 L 3.5-5.0 g/dL Urine Color COLORLESS YELLOW Urine Appearance CLEAR CLEAR Urine pH 7.0 5.0-8.0 Urine Specific [place]ona 1.005 1.001-1.031 Urine Protein NEGATIVE NEGATIVE mg/dL Urine Glucose (UA) NEGATIVE NEGATIVE mg/dL Urine Ketones 20 H NEGATIVE mg/dL Urine Occult Blood +- (TRACE) H NEGATIVE Urine Nitrate NEGATIVE NEGATIVE Urine Bilirubin NEGATIVE NEGATIVE mg/dL Urine Urobilinogen 0.2 0.2-1.0 mg/dL Urine Leukocyte Esterase NEGATIVE NEGATIVE Herminia/uL Urine RBC 0-1 0-1 /HPF Urine WBC 2-5 H 0-1 /HPF Urine Squamous Epithelial Cells RARE 0-2 /HPF Urine Bacteria RARE None Seen /HPF Immature Granulocyte % (Auto) 0.3 0-1 % Neutrophils (%) (Auto) 67.1 40.0-77.0 % Lymphocytes (%) (Auto) 16.0 L 21.0-51.0 % Monocytes (%) (Auto) 6.5 3.0-13.0 % Eosinophils (%) (Auto) 9.7 H 0.0-8.0 % Basophils (%) (Auto) 0.4 0.0-5.0 % Neutrophils # (Auto) 6.5 1.8-7.7 K/uL Lymphocytes # (Auto) 1.6 1.0-4.8 K/uL Monocytes # (Auto) 0.6 0.1-1.0 K/uL Eosinophils # (Auto) 0.94 H 0.00-0.70 K/uL Basophils # (Auto) 0.04 0.00-0.20 K/uL Absolute Immature Granulocyte (auto 0.03 0-1 K/uL Red Blood Cell Morphology See comments Prothrombin Time 11.4 9.6-11.6 SEC Prothromb Time International Ratio 1.08 0.85-1.15 Current Medications Medications (Trade) Dose Ordered Sig/Donell Route PRN Reason Start Time Stop Time Status Last Admin Dose Admin Acetaminophen (TYLenol 325MG TAB) 650 mg Q6H PRN PO FEVER/MILD PAIN LEVEL 1-3 12/30/24 23:00 01/29/25 22:59 Acetaminophen (TYLenol 650MG SUPPOSITORY) 650 mg Q6H PRN RC FEVER / MILD PAIN 1-3 IF NPO 12/30/24 23:00 01/29/25 22:59 Dextrose (D50w) 50 ml AD PRN IV HYPOGLYCEMIA PROTOCOL 12/30/24 23:00 01/29/25 22:59 Dicyclomine HCl (Bentyl 20mg Tab) 20 mg BID PRN PO GI UPSET/UPSET STOMACH 12/31/24 09:00 01/30/25 08:59 Glucagon (Glucagon 1mg Kit) 1 mg AD PRN IM HYPOGLYCEMIA PROTOCOL 12/30/24 23:00 01/29/25 22:59 Insulin Human Regular (humuLIN R 100 UNIT/ML 3ML) INSULIN SLIDING SCAL... ACHS SQ 12/31/24 07:30 01/30/25 07:29 Labetalol HCl (TRANdate 20MG SYG) 10 mg Q2H PRN IV SBP GREATER THAN 160 12/30/24 23:00 01/29/25 22:59 Magnesium Sulfate 50 ml @ 0 mls/hr PROTOCOL PRN IV MAGNESIUM PROTOCOL 12/30/24 23:00 01/29/25 22:59 Ondansetron HCl (zoFRAN 4MG INJ) 4 mg Q6H PRN IVP NAUSEA/VOMITING 12/30/24 23:00 01/29/25 22:59 Pantoprazole Sodium (PROTonix 40MG INJ) 40 mg BID IVP 12/31/24 09:00 01/30/25 08:59 Potassium Chloride/Sodium Chloride 1,000 ml @ 100 mls/hr Q10H IV 12/31/24 05:00 01/30/25 04:59 12/31/24 06:18 100 MLS/HR Potassium Chloride 100 ml @ 100 mls/hr AD PRN IV POTASSIUM PROTOCOL 12/30/24 23:00 01/29/25 22:59 Potassium Chloride (K-Dur/Klor-Con 20meq) 20 meq AD PRN PO POTASSIUM PROTOCOL 12/30/24 23:00 01/29/25 22:59 Potassium Chloride (KCl 10% Elixir 20meq/15ml) 20 meq AD PRN PO POTASSIUM PROTOCOL 12/30/24 23:00 01/29/25 22:59 Sodium Chloride 1,000 ml @ 100 mls/hr Q10H IV 12/30/24 23:00 01/29/25 22:59 12/30/24 23:08 100 MLS/HR Temazepam (restORIL 15 MG CAP) 15 mg HS PRN PO INSOMNIA/SLEEP 12/30/24 23:00 01/29/25 22:59 Diagnostics / Radiology: [COPY/PASTE HERE IF NO REPORTS PLEASE DELETE SECTION] Assessment: [Concern for GI bleed Anemia Ulcerative Colitis Hypothyroidism ] Plan: Case discussed with Dr. Naidu [Clear fluids today NPO after midnight Recommend trending HGB every 6 hours and transfuse as needed to goal HGB > 7. Plan for Colonoscopy in am--All information given to patient. Her questions were answered and she agreed to proceed with exam. Stool studies ordered Mesalamine 1600mg po tid Please call with questions, concerns, and change in clinical status. Thank you for allowing us to be part of this patient's care ] ERIS MARTIN NP Dec 31, 2024 09:36 Electronically Signed by: ERIS MARTIN NP12/31/242041 Electronically Co-Signed by: Procedure(s): [place] [address] [address] IMAGING REPORT Signed PATIENT: TIFF TEJEDA MR#: [id number] : 1995 SEX: F AGE: 29 LOCATION: 4BH ORDER 0430 STATUS: ADM IN REPORT#: [id number] SERVICE REASON: abd pain, severe anemia, hx ulcerative colitis ORDERING PHYSICIAN: MARIE HERNANDEZ [employer] PHARMACY TECHNICIAN PROCEDURE: ABD PEL W - CT ABDOMEN/PELVIS W/CONTRAST EXAM: CT Abdomen and Pelvis with IV contrast CLINICAL HISTORY: Abdominal pain. Severe anemia. History of ulcerative colitis. TECHNIQUE: Thin collimated axial CT images of the abdomen and pelvis were obtained, with sagittal and coronal reformatted images also submitted. A CT scan is done according to ALARA (As Low As Reasonably Achievable). CONTRAST: Contrast information is not available. COMPARISON: Prior CT abdomen dated 11 February 2024 FINDINGS: Unremarkable visualized lung parenchyma. No focal abnormality within the liver, gallbladder, pancreas, spleen, adrenals, or kidneys. Subtle inflammatory wall thickening in the distal transverse, descending colon, and diffuse inflammatory wall thickening in the region of the sigmoid colon and in the rectum with submucosal edema and adjacent fat stranding. No evidence of diverticulosis or diverticulitis. No features of bowel obstruction or ileus. The appendix is normal. There is no abnormality within the urinary bladder. A fat attenuation 2.4 x 2.4 cm lesion in the left ovary, probably a left ovarian dermoid, and another 3.1 x 2.8 cm cyst follicular cyst, in the left ovary. The uterus and right ovary appear unremarkable. Abdominal and pelvic vessels are patent. No lymphadenopathy. No free fluid. There is no acute osseous abnormality. IMPRESSIONS: Subtle inflammatory wall thickening in the distal transverse, descending colon, and diffuse inflammatory wall thickening in the region of the sigmoid colon and in the rectum with submucosal edema and adjacent fat stranding. Consistent with the history of ulcerative colitis. No evidence of diverticulosis or diverticulitis. Normal contrast opacification of the abdominal aorta and visceral arteries. No significant narrowing or occlusion. A fat attenuation 2.4 x 2.4 cm lesion in the left ovary, probably a left ovarian dermoid, and another 3.1 x 2.8 cm cyst follicular cyst, in the left ovary. Compared to the prior study, redemonstrated inflammatory wall thickening in the descending, sigmoid colon, and rectum, more pronounced in the current scan. Stable left ovarian dermoid, interval development of 2.8 x 3.1 cm follicular cyst in the left ovary. /[place] DICTATED BY: DANY ACOSTA Jr., MD DATE: 12/31/24743 ELECTRONICALLY SIGNED BY: DANY ACOSTA Jr., MD DATE: 12/31/2444 Assessment/Plan: ASSESSMENT: Severe iron deficiency anemia requiring blood transfusion, POA ulcerative colitis Anorexia 2/2 acute abdominal pain, POA Severe hypokalemia, POA Thrombocytosis, POA Acute dehydration/ketonuria, POA Malnutrition/Hypoalbuminemia, POA History of a recurrent anemia requiring blood transfusion, follows with Dr. Burton Nonadherence to medications and follow-up Severe iron deficiency anemia: - transfusion done with 1 pack of PRBCs this morning - hemoglobin improved from 6.9 to 8.7 - trend hemoglobin every 6 hr, transfuse to maintain hemoglobin>7 - follow Hematology recommendations ulcerative colitis: - Solu-Medrol 60 mg IV for three days. - mesalamine 1600 mg PO TID daily -GI prophylaxis with pantoprazole 40 mg IV b.i.d. -follow GI recommendations Severe hypokalemia: - potassium chloride/sodium chloride 1000 mL @ 100mls/hr Q10H IV - potassium improved from 3.3 to 3.5 -follow-up with urine electrolytes Malnutrition/Hypoalbuminemia: -consulted nutrition for dietary recommendations - low residue GI soft diet, B vitamin combination for vitamin deficiency -magic4 Oz/ PM tray provides 9 g protein 290 kilocalories and 20 vitamins and minerals - check zinc and vitamin-D common deficiency seen in ulcerative colitis Further course of hospitalization depending on hematology and GI recommendations. Anticipate discharge after 48 hours hours. Discharge Instructions: Ulcerative colitis: - starting steroid taper at home for 7 weeks. Prednisone 40 mg daily 1st week, prednisone 30 mg daily 2nd week, prednisone 20 mg daily 3rd week, prednisone 10 mg daily for 4th week, prednisone5 mg daily 5th week, prednisone 5 mg on alternate days for 6th and 7th week. -mesalamine date 800 mg ER 2 tablets t.i.d. for 30 days. -follow-up with principal electrical engineer in 2 weeks. Iron deficiency anemia: .-recommended food rich in iron -follow-up with dermatologist in outpatient clinic in 1 week. Hypokalemia: -potassium has been improved from 2.5 to 3.9 -recommended to be hydrated with electrolyte drinks Dietary recommendations: -low residue GI soft diet -NephroVite MVI combination off B vitamins to prevent vitamin deficiency -magic cup 4 oz W/ PM tray: Provides 9 g protein 20 vitamins and minerals -consider alternate nutrition support if oral intake inadequate and prolonged > 3-5 days. Home Medications: Active Scripts Prednisone (Prednisone) 5 Mg Tablet, 5 MG PO QODAY for 14 Days, #7 TAB Prov:RAYMOND MCKEON MD 01/02/25 Prednisone (Prednisone) 5 Mg Tablet, 1 TAB PO DAILY for 7 Days, #7 TAB 0 Refills 5 week steroid dosing schedule 40 mg daily for 1 st week 30 mg daily for 2 nd week 20 mg daily for 3 week 10 mg daily for 4 week 5 mg daily for 5 week 5 mg every other day for 6th and 7 th weeks Prov:RAYMOND MCKEON MD 01/02/25 Prednisone (Prednisone) 10 Mg Tablet, 10 TAB PO DAILY for 7 Days, #7 TAB 0 Refills 4 th week steroid dosing schedule 40 mg daily for 1 st week 30 mg daily for 2 nd week 20 mg daily for 3 week 10 mg daily for 4 week 5 mg daily for 5 week 5 mg every other day for 6th and 7 th weeks Prov:RAYMOND MCKEON MD 01/02/25 Prednisone (Prednisone) 20 Mg Tablet, 20 MG PO DAILY for 7 Days, #7 TAB 3rd Week steroid dosing schedule 40 mg daily for 1 st week 30 mg daily for 2 nd week 20 mg daily for 3 week 10 mg daily for 4 week 5 mg daily for 5 week 5 mg every other day for 6th and 7 th weeks Prov:RAYMOND MCKEON MD 01/02/25 Prednisone (Prednisone) 20 Mg Tablet, 30 MG PO DAILY for 7 Days, #7 TAB 2 nd week steroid dosing schedule 40 mg daily for 1 st week 30 mg daily for 2 nd week 20 mg daily for 3 week 10 mg daily for 4 week 5 mg daily for 5 week 5 mg every other day for 6th and 7 th weeks Prov:RAYMOND MCKEON MD 01/02/25 Prednisone (Prednisone) 20 Mg Tablet, 40 MG PO DAILY for 7 Days, #7 TAB first week after Discharge steroid dosing schedule 40 mg daily for 1 st week 30 mg daily for 2 nd week 20 mg daily for 3 week 10 mg daily for 4 week 5 mg daily for 5 week 5 mg every other day for 6th and 7 th weeks Prov:RAYMOND MCKEON MD 01/02/25 [Mesalamine] 800 MG TABLET.DR Fleming Conflict Check, 1600 MG PO TID, #180 0 Refills Prov:RAYMOND MCKEON MD 01/02/25 Reported Medications Dicyclomine HCl (Dicyclomine HCl) 20 Mg Tablet, 1 TAB PO BID for irritable bowel symptoms for 30 Days, #60 TAB 0 Refills 12/31/24 Adalimumab (Humira Pen) 40 Mg/0.4 Ml Pen.ij.kit, 40 MG SQ [id number] 12/31/24 Discontinued Reported Medications Cholecalciferol (Vitamin D3) (Vitamin D3) 1,250 Mcg (14045 Unit) Capsule, 1 CAP PO QWEEK for 28 Days, #4 CAP 0 Refills 02/05/24 Ferrous Sulfate (Feosol) 325 Mg (65 Mg Iron) Tablet, 1 TAB PO TID for 30 Days, #30 TAB 0 Refills 02/05/24 New Medications: Prednisone (Prednisone) 20 Mg Tablet 40 MG PO DAILY for 7 Days, #7 TAB first week after Discharge steroid dosing schedule 40 mg daily for 1 st week 30 mg daily for 2 nd week 20 mg daily for 3 rd week 10 mg daily for 4 th week 5 mg daily for 5 th week 5 mg every other day for 6th and 7 th weeks Prednisone (Prednisone) 20 Mg Tablet 30 MG PO DAILY for 7 Days, #7 TAB 2 nd week steroid dosing schedule 40 mg daily for 1 st week 30 mg daily for 2 nd week 20 mg daily for 3 rd week 10 mg daily for 4 th week 5 mg daily for 5 th week 5 mg every other day for 6th and 7 th weeks Prednisone (Prednisone) 20 Mg Tablet 20 MG PO DAILY for 7 Days, #7 TAB 3rd Week steroid dosing schedule 40 mg daily for 1 st week 30 mg daily for 2 nd week 20 mg daily for 3 week 10 mg daily for 4 th week 5 mg daily for 5 th week 5 mg every other day for 6th and 7 th weeks Prednisone (Prednisone) 10 Mg Tablet 10 TAB PO DAILY for 7 Days, #7 TAB 0 Refills 4 th week steroid dosing schedule 40 mg daily for 1 st week 30 mg daily for 2 nd week 20 mg daily for 3 rd week 10 mg daily for 4 th week 5 mg daily for 5 th week 5 mg every other day for 6th and 7 th weeks Prednisone (Prednisone) 5 Mg Tablet 1 TAB PO DAILY for 7 Days, #7 TAB 0 Refills 5 th week steroid dosing schedule 40 mg daily for 1 st week 30 mg daily for 2 nd week 20 mg daily for 3 rd week 10 mg daily for 4 th week 5 mg daily for 5 th week 5 mg every other day for 6th and 7 th weeks Prednisone (Prednisone) 5 Mg Tablet 5 MG PO QODAY for 14 Days, #7 TAB [Mesalamine] () 800 MG TABLET.DR 1600 MG PO TID, #180 0 Refills Continued Medications: Adalimumab (Humira Pen) 40 Mg/0.4 Ml Pen.ij.kit 40 MG SQ [id number] Dicyclomine HCl (Dicyclomine HCl) 20 Mg Tablet 1 TAB PO BID for irritable bowel symptoms for 30 Days, #60 TAB 0 Refills Time spent arranging discharge: 1-30 minutes ATTESTATION BY PHYSICIAN I have seen and examined the patient. I reviewed the documentation, medical decision making, and treatment plan as noted by the resident provider above. I agree with the findings and plan of care. Ernesto Etienne MD, ADIL SHAH QUADRI MD Jan 02, 2025 11:27
[2025-01-02 11:35] VITALS: BP 96/61; PULSE 68; RESP 18; TEMP 97.8
--- NOTE | 2025-01-02 13:36 | PN ---
GASTROENTEROLOGY PROGRESS NOTE Date of Visit: Jan 02, 2025 Time of Visit: 13:36 Events / Notes: [ ] Review of Systems: CONSTITUTIONAL: No malaise or change in sensation of wellbeing. ENMT: No rhinorrhea, otorrhea, sinus pain, ear ache. CARDIOVASCULAR: No angina, palpitations, orthopnea or paroxysmal dyspnea. RESPIRATORY: No SOB. GASTROINTESTINAL: No abdominal pain, nausea, vomiting, diarrhea, hematemesis, melena or change in the patient's habitual bowel movements consistency/number. GENITOURINARY: No dysuria, hematuria or change in bladder continence. MUSCULOSKELETAL: No new muscle pain or decrease in muscular strength. No new joint swelling, redness or tenderness. SKIN: No new rash. Physical Exam GEN: Awake, alert, oriented in person, time and place, and in no acute distress. HEENT: No rhinorrhea. Oral pharyngeal mucosa is pink, moist and within normal limits. CHEST: Inspection, and palpation of the chest were unremarkable. Lung auscultation revealed normal breath sounds bilaterally. CARDIAC: PMI is within normal limits. Heart sounds are regular. ABD: Soft, non-tender and not distended. No peritoneal signs on palpation. No organomegaly. Normal bowel sounds. Last bm 12/31/24. EXT: No cyanosis or clubbing. No edema. SKIN: Intact. No rashes. JOINTS: No evidence of synovitis or acute arthritis. NEURO: Alert and oriented to name, place and person. Cranial nerve examination is unremarkable. No focal motor deficits. Normal speech. Steady gait noted. St rength is normal. Vital Signs (last 8hr) Date Time Temp Pulse Resp B/P (MAP) Pulse Ox O2 Delivery O2 Flow Rate FiO2 01/02/25 11:35 97.9 68 18 96/61 99 Room Air 21 01/02/25 08:00 97.9 68 16 106/58 100 Room Air 21 01/02/25 08:00 100 Room Air* 0 21 Laboratory: [ ] Laboratory: Test 01/02/25 11:18 01/02/25 07:27 01/02/25 05:34 01/01/25 16:38 Range/Units Whole Blood Glucose 83 70-110 MG/DL White Blood Count 8.5 # 4.8-10.8 K/uL Red Blood Count 3.83 L 4.00-5.50 MIL/uL Hemoglobin 8.6 L 12.0-16.0 g/dL Hematocrit 29.0 L 36-48 % Mean Corpuscular Volume 75.7 L 79-99 fL Mean Corpuscular Hemoglobin 22.5 L 27.0-33.0 pg Mean Corpuscular Hemoglobin Concent 29.7 L 32.0-36.0 g/dL Red Cell Distribution Width 24.0 H 11.0-15.5 % Platelet Count 440 H 130-400 K/uL Mean Platelet Volume 9.5 7.5-10.5 fL Immature Granulocyte % (Auto) 0.4 0-1 % Neutrophils (%) (Auto) 72.3 40.0-77.0 % Lymphocytes (%) (Auto) 17.4 L 21.0-51.0 % Monocytes (%) (Auto) 7.7 3.0-13.0 % Eosinophils (%) (Auto) 1.7 0.0-8.0 % Basophils (%) (Auto) 0.5 0.0-5.0 % Neutrophils # (Auto) 6.1 1.8-7.7 K/uL Lymphocytes # (Auto) 1.5 1.0-4.8 K/uL Monocytes # (Auto) 0.7 0.1-1.0 K/uL Eosinophils # (Auto) 0.14 0.00-0.70 K/uL Basophils # (Auto) 0.04 0.00-0.20 K/uL Absolute Immature Granulocyte (auto 0.03 0-1 K/uL Nucleated Red Blood Cells 0.0 0.0-0.19 % Sodium Level 138 136-145 mmol/L Potassium Level 3.9 3.5-5.1 mmol/L Chloride Level 105 101-111 mmol/L Carbon Dioxide Level 13 L 21-32 mmol/L Blood Urea Nitrogen 3 L 7-18 mg/dL Creatinine 0.5 0.5-1.0 mg/dL Glomerular Filtration Rate Calc 131 >90 mL/min Random Glucose 60 L 70-105 mg/dL Total Calcium 8.1 L 8.5-10.1 mg/dL Magnesium Level 1.80 1.80-2.40 mg/dL Bedside Glucose Comment Notified Nurse Test 12/31/24 15:15 Range/Units Hepatitis B Surface Antigen. Non-Reactive Nonreactive Hepatitis B Surface Antibody. Negative L Reactive Hepatitis B Core Total Antibody. Non-Reactive Nonreactive Hepatitis B Core IgM Antibody Non-Reactive Negative Current Medications Medications (Trade) Dose Ordered Sig/Donell Route PRN Reason Start Time Stop Time Status Last Admin Dose Admin Acetaminophen (TYLenol 325MG TAB) 650 mg Q6H PRN PO FEVER/MILD PAIN LEVEL 1-3 12/30/24 23:00 01/29/25 22:59 12/31/24 21:56 650 MG Acetaminophen (TYLenol 650MG SUPPOSITORY) 650 mg Q6H PRN RC FEVER / MILD PAIN 1-3 IF NPO 12/30/24 23:00 01/29/25 22:59 Dextrose (D50w) 50 ml AD PRN IV HYPOGLYCEMIA PROTOCOL 12/30/24 23:00 01/29/25 22:59 Dicyclomine HCl (Bentyl 20mg Tab) 20 mg BID PRN PO GI UPSET/UPSET STOMACH 12/31/24 09:00 01/30/25 08:59 Glucagon (Glucagon 1mg Kit) 1 mg AD PRN IM HYPOGLYCEMIA PROTOCOL 12/30/24 23:00 01/29/25 22:59 Insulin Human Regular (humuLIN R 100 UNIT/ML 3ML) INSULIN SLIDING SCAL... ACHS SQ 12/31/24 07:30 01/30/25 07:29 Labetalol HCl (TRANdate 20MG SYG) 10 mg Q2H PRN IV SBP GREATER THAN 160 12/30/24 23:00 01/29/25 22:59 Magnesium Sulfate 50 ml @ 0 mls/hr PROTOCOL PRN IV MAGNESIUM PROTOCOL 12/30/24 23:00 01/29/25 22:59 01/02/25 06:42 25 MLS/HR Mesalamine (Asacol Hd) 1,600 mg TID PO 12/31/24 14:00 01/30/25 13:59 01/02/25 08:38 1,600 MG Methylprednisolone Sodium Succinate (Solu-medROL 40MG) 60 mg DAILY13 IVP 01/01/25 13:00 01/03/25 14:00 01/01/25 13:34 60 MG Ondansetron HCl (zoFRAN 4MG INJ) 4 mg Q6H PRN IVP NAUSEA/VOMITING 12/30/24 23:00 01/29/25 22:59 Pantoprazole Sodium (PROTonix 40MG INJ) 40 mg BID IVP 12/31/24 09:00 01/30/25 08:59 01/02/25 08:38 40 MG Potassium Chloride/Sodium Chloride 1,000 ml @ 100 mls/hr Q10H IV 12/31/24 05:00 01/30/25 04:59 01/01/25 22:35 100 MLS/HR Potassium Chloride 100 ml @ 100 mls/hr AD PRN IV POTASSIUM PROTOCOL 12/30/24 23:00 01/29/25 22:59 Potassium Chloride (K-Dur/Klor-Con 20meq) 20 meq AD PRN PO POTASSIUM PROTOCOL 12/30/24 23:00 01/29/25 22:59 01/01/25 23:42 20 MEQ Potassium Chloride (KCl 10% Elixir 20meq/15ml) 20 meq AD PRN PO POTASSIUM PROTOCOL 12/30/24 23:00 01/29/25 22:59 12/31/24 20:19 20 MEQ Sodium Chloride 1,000 ml @ 100 mls/hr Q10H IV 12/30/24 23:00 01/01/25 05:18 DC 12/30/24 23:08 100 MLS/HR Temazepam (restORIL 15 MG CAP) 15 mg HS PRN PO INSOMNIA/SLEEP 12/30/24 23:00 01/29/25 22:59 Diagnostics / Radiology: [COPY/PASTE HERE IF NO REPORTS PLEASE DELETE SECTION] Assessment: [Concern for GI bleed Anemia Ulcerative Colitis Hypothyroidism ] Plan: Case discussed with Dr. Naidu [Clear fluids today NPO after midnight Recommend trending HGB every 6 hours and transfuse as needed to goal HGB > 7. Plan for Colonoscopy in am--All information given to patient. Her questions were answered and she agreed to proceed with exam. Stool studies ordered Mesalamine 1600mg po tid Please call with questions, concerns, and change in clinical status. Thank you for allowing us to be part of this patient's care ] ERIS MARTIN [employer] Jan 02, 2025 13:36
--- NOTE | 2025-01-02 13:53 | NUR ---
PATIENT IS DISCHARGED. MIDLINE TAKEN OUT WITH CATHETER INTACT. BY MITESH GARCÍA. REPORT GIVEN TO TARIQ AT [facility]. EDUCATION GIVEN TO FAMILY. CURRENTLY WAITING TO EMS TO TAKE PATIENT. Addendum: 01/02/25 at 1357 by SUE CHOPRAN PLEASE DISREGARD. WRONG CHART.
[2025-01-02 13:54] LABS: CREATININE 0.4 mg/dL (0.5-1.0); GLOMERULAR FILTR. RATE CALC 138.0 mL/min (>90); GLUCOSE,RANDOM 96.0 mg/dL (70-105); SODIUM SERUM 137.0 mmol/L (136-145); UREA NITROGEN, BLOOD 2.0 mg/dL (7-18)
[2025-01-02] MEDS ORDERED: PRED5TAB PO ×2 (13:58)
[2025-01-02] MEDS ORDERED: Mesalamine PO (13:58)
[2025-01-02] MEDS ORDERED: PRED20TA3 PO (13:58)
[2025-01-02] MEDS ORDERED: PRED10TA3 PO (13:58)
== END 2025-01-02 16:10 | disposition home or self-care (01) | DRG 245 ==
LOC: EDH 18:33 → EDHIP 18:34 → 4BH 12-31 05:50
PROVIDERS: ADMIT Internal Medicine; ATTEND Internal Medicine
PROC: 30233N1 Transfusion of Nonautologous Red Blood Cells into Peripheral Vein, Percutaneous Approach (ICD-10-PCS; principal; 2024-12-30)
PROC: 0DBB8ZX Excision of Ileum, Via Natural or Artificial Opening Endoscopic, Diagnostic (ICD-10-PCS; 2025-01-01)
PROC: 0DBL8ZX Excision of Transverse Colon, Via Natural or Artificial Opening Endoscopic, Diagnostic (ICD-10-PCS; 2025-01-01)
PROC: 0DBN8ZX Excision of Sigmoid Colon, Via Natural or Artificial Opening Endoscopic, Diagnostic (ICD-10-PCS; 2025-01-01)
PROC: 0DBP8ZX Excision of Rectum, Via Natural or Artificial Opening Endoscopic, Diagnostic (ICD-10-PCS; 2025-01-01)
PROC: 0DBF8ZX Excision of Right Large Intestine, Via Natural or Artificial Opening Endoscopic, Diagnostic (ICD-10-PCS; 2025-01-01)
DX: K51.911 Ulcerative colitis, unspecified with rectal bleeding (principal); E46 Unspecified protein-calorie malnutrition; E88.09 Other disorders of plasma-protein metabolism, not elsewhere classified; D50.9 Iron deficiency anemia, unspecified; E87.6 Hypokalemia; E86.0 Dehydration; E03.9 Hypothyroidism, unspecified; D75.838 Other thrombocytosis; K52.9 Noninfective gastroenteritis and colitis, unspecified; E56.9 Vitamin deficiency, unspecified; D75.839 Thrombocytosis, unspecified; Z68.1 Body mass index [BMI] 19.9 or less, adult; Z98.891 History of uterine scar from previous surgery; Z91.148 Patient's other noncompliance with medication regimen for other reason
CPT/HCPCS: 36415; 36430; 45380; 74177; 80048; 80053; 81001; 81025; 82010; 82306; 82607; 82728; 82746; 82948; 83036; 83735; 84100; 84132; 84443; 84630; 85014; 85018; 85025; 85027; 85610; 86140; 86704; 86705; 86706; 86850; 86900; 86901; 86923; 87340; 87507; 87635; 87804; 88305; 96365; 96375; 99291; A4606; G0378; J1756; J2270; J2470; J2704; J2919; J3475; J3480; J7030; P9016; Q9967; A4215; A4222; A4223; A4620; J3490